=== PATIENT | male | born 1930 | race Caucasian/White ===

== ENCOUNTER 2016-04-04 12:38 | Inpatient (IN) | payer MEDICARE ==
[~2016-04-04] VITALS: Ht 170.2 cm; Wt 85.9 kg
[~2016-04-04 12:38] MED LIST: ASPI325T PO; FENO160T PO; LEVO100T5 PO; METR1GEL TOPICAL; TAMS0.4C4 PO
[2016-04-06] MEDS ORDERED: POVIDONE IODINE 7.5% SCRUB 118 ML BOTTLE TOP SCH (06:00)
[2016-04-06] MEDS ORDERED: INSULIN HUMAN REGULAR 1,000 UNITS/10 ML VIAL SQ PRN (06:00)
[2016-04-06] MEDS ORDERED: VANCOMYCIN 1000 MG/NS 250 ML (for <70 kg) IV SCH ×2 (06:00)
[2016-04-06] MEDS ORDERED: METOPROLOL TARTRATE 25 MG TAB PO PRN (06:00)
[2016-04-06] MEDS ORDERED: ASPI81CH37 PO (06:45)
[2016-04-06] MEDS: LACTATED RINGER'S 1000 ML IV SCH (06:45)
--- NOTE | 2016-04-06 06:48 | HHI.DCPOC ---
Discharge Care Plan Diagnosis: (1) Osteoarthritis of left knee (2) S/P TKR (total knee replacement) Your Health Problems Are: Difficulty with ADL Goals to Promote Your Health * To prevent worsening of your condition and complications * To maintain your health at the optimal level Directions to Meet Your Goals Take your medications as prescribed Follow your dietary instruction Follow activity as directed Keep your appointments as scheduled Take your immunizations and boosters as scheduled If your symptoms worsen call your PCP, if no PCP go to Urgent Care Center or Emergency Room Smoking is Dangerous to Your Health. Avoid second hand smoke Call the 24-hour hour crisis hotline for domestic abuse at Donato Kraus Apr 06, 2016 06:48
--- NOTE | 2016-04-06 06:49 | HHI.FF ---
Face to Face Verification Diagnosis: (1) Osteoarthritis of left knee (2) S/P TKR (total knee replacement) Physical Therapy Gait training, Transfer training, bed to chair Knee: Total knee Left LE Weight Bearing: WB as tolerated Left LE Range of Motion: Active ROM Nursing Nursing: Anai teaching, Dressing changes Dressing Changes: Daily dressing change I have seen patient Braxton Escobar on 04/06/16. My clinical findings support the need for the requested home health care services because: Limited ability to care for self High risk of falls I certify that my clinical findings support that this patient is homebound because: Post-op weakness Unsteady gait/balance Donato Kraus Apr 06, 2016 06:49
[2016-04-06 06:51] VITALS: BP 139/75; PULSE 66; RESP 20; TEMP 98.1; O2SAT 97
[2016-04-06] MEDS ORDERED: CPMMACHINE (06:51)
[2016-04-06] MEDS ORDERED: WALKER WHEELS/F1 MIS (06:51)
[2016-04-06] MEDS ORDERED: COMMODE 3-IN-11 MIS (06:51)
[2016-04-06] MEDS ORDERED: DEXAMETHASONE SOD PHOS 20 MG/5 ML VIAL IV SCH (07:00)
[2016-04-06] MEDS ORDERED: GENTAMICIN SULFATE 80 MG/2 ML VIAL ONE (07:29)
[2016-04-06] MEDS ORDERED: ceFAZolin 2 GM PREMIX 50 ML IV SCH (07:30)
[2016-04-06] MEDS ORDERED: MIDAZOLAM HCL 5 MG/5 ML VIAL ONE (07:31)
[2016-04-06] MEDS ORDERED: FAMOTIDINE 20 MG/2 ML VIAL ONE (07:32)
[2016-04-06] MEDS ORDERED: SODIUM CHLORIDE 0.9% IV SCH (08:30)
[2016-04-06] MEDS ORDERED: ROPIVACAINE PERI-ARTICULAR INJECTION. PERIART SCH ×5 (08:30)
[2016-04-06] MEDS ORDERED: TRANEXAMIC ACID IV SCH (08:30)
[2016-04-06] MEDS ORDERED: SODIUM CHLORID 0.9% 500 ML IV SCH (08:30)
--- NOTE | 2016-04-06 09:54 | PD.OP ---
cc: Darryn Max MD Operative Report Date of Surgery: Apr 06, 2016 Preoperative Diagnosis: Left knee severe osteoarthritis Postoperative Diagnosis: Same Procedure: Left total knee arthroplasty Anesthesia: Adductor canal block and spinal Surgeon: Darryn Max Log Marker(s): BRITTON Stein The surgical procedure was assisted by my Advanced Registered Nurse Practitioner. My MUSIC MANAGER presence was necessary throughout this case for the manipulation and positioning of the surgical extremity. My MUSIC MANAGER was assisting me throughout the duration of this procedure. The skill set of an Advance Registered Nurse Practitioner was medically necessary to complete this procedure. During the surgical case, the salesperson surgical appliances was working at the back table and the Advance Registered Nurse Practitioner was directly assisting me. Operation and Findings: IMPLANTS: DePuy Attune: Patella: size 35. Femur, posterior stabilized size 7. Tibia, rotating platform size 6. Tibial insert, rotating platform, posterior stabilized size 5 mm thickness. ESTIMATED BLOOD LOSS: 200 cc TOURNIQUET TIME: 39 minutes at 250 mmHg pressure. JUSTIFICATION FOR PROCEDURE: The patient has end-stage osteoarthritis to the knee. There is an attached conservative measures pathway form in the chart that describes the nonoperative measures that were undertaken prior to consideration of surgical management. The patient understood the risks and benefits of surgical management. See my office notes for further details PROCEDURE: The patient was brought back to the operative theatre. Adequate anesthesia was obtained. The patient received intravenous vancomycin and Ancef. The lower extremity was prepped and draped in the usual sterile fashion.The leg was exsanguinated, the tourniquet was raised. A standard anterior incision was performed followed by medial parapatellar arthrotomy was performed. End-stage arthritis was identified. Osteotomy of the patella was performed. We drilled holes for the patella. We trialed the patella component. We placed an intramedullary guide into the distal femur. We ultimately resected 13 mm off of the distal femur in 5 degrees of valgus. The remnants of the ACL and PCL were resected. Osteotomy of the proximal tibia was performed, resecting 5 mm off of the medial side. This was done with 3 degrees of posterior slope using an extramedullary guide. The distal end of the guide was placed in the mid aspect of the ankle. The femur was sized, and four chamfer cuts were completed in 3 of external rotation. We then cut the central box in the distal femur to replace the PCL. We resected the remnants of the menisci and removed osteophytes off of the femur and tibia. We then trialed the knee. We punched the tibia for the keel, and then used standard technique to cement in components. Excess cement was removed. We trialed the knee again and the final polyethylene thickness was chosen to provide extension to 0 degrees, and flexion of 140 degrees to gravity. The ligaments were appropriately balanced. Lateral release was not necessary to obtain excellent patellofemoral tracking. The tourniquet was released and adequate hemostasis was obtained. An intra- articular injection of a ropivacaine cocktail was injected. The posterior knee was inspected for excess cement, which was removed. The final polyethylene was put into position after thorough irrigation. We then closed deep fascia with a #2 Stratafix followed by skin with 2-0 Vicryl followed by elicia. Postop plan is to weight-bear as tolerated. DVT prophylaxis will be performed with John, ANDRES whitehead, early mobilization, and Lovenox followed by aspirin. Darryn Max MD Apr 06, 2016 09:54
[2016-04-06] MEDS ORDERED: ASPI325T PO (09:56)
[2016-04-06] MEDS ORDERED: ENOX40P SQ (09:56)
[2016-04-06] MEDS ORDERED: ULTR50TA5 PO (09:56)
[2016-04-06] MEDS ORDERED: NORC5TAB PO (09:56)
[2016-04-06] MEDS ORDERED: MORPHINE SULFATE 4 MG/ML INJ IV PUSH PRN (10:00)
[2016-04-06] MEDS ORDERED: BISACODYL 10 MG SUPP PR PRN (10:00)
[2016-04-06] MEDS ORDERED: Post-op Orders (for Pharmacy) MISC XX ONE (10:00)
[2016-04-06] MEDS ORDERED: diphenhydrAMINE HCL 50 MG/ML VIAL IV PRN (10:00)
[2016-04-06] MEDS ORDERED: SODIUM CHLORIDE 0.9% FLUSH 5 ML FLUSH IVF PRN (10:00)
[2016-04-06] MEDS ORDERED: ZOLPIDEM TARTRATE 5 MG TAB PO PRN (10:00)
[2016-04-06] MEDS ORDERED: NALOXONE HCL 0.4 MG/ML AMP IV PRN (10:00)
[2016-04-06] MEDS ORDERED: ALUMINUM/MAGNESIUM/SIMETH 30 ML CUP PO PRN (10:00)
[2016-04-06] MEDS ORDERED: MAGNESIUM HYDROXIDE SUSP 30 ML CUP PO PRN (10:00)
[2016-04-06] MEDS ORDERED: ONDANSETRON HCL 4 MG/2 ML VIAL IVP PRN (10:00)
[2016-04-06] MEDS ORDERED: ACETAMINOPHEN/HYDROcodone 325 MG/5 MG TAB PO PRN ×4 (10:00→14:00)
[2016-04-06] MEDS ORDERED: DO NOT ADM ANY ANTICOAGULANT DRUGS XX PRN (10:08)
[2016-04-06] MEDS: SODIUM CHLOR 0.9% 1000 ML INJ 1,000 ML IV SCH ×2 (10:30→21:29)
[2016-04-06] MEDS ORDERED: TRANEXAMIC ACID INJ 860 MG in SODIUM CHLORIDE 0.9% INJ 100 ML IV SCH (11:00)
--- NOTE | 2016-04-06 11:38 | PD.CONS ---
History of Present Illness Service [facility] Teaching Service Consult Requested By Dr. Max Reason for Consult Medical management Primary Care Physician Syed Joseph MD Diagnoses: (1) S/P TKR (total knee replacement) (2) Hyperlipidemia (3) Hypothyroid (4) BPH (benign prostatic hyperplasia) History of Present Illness Patient seen in PACU this morning. In summary, this is an 86 year old male with h/o osteoarthritis of multiple joints, HLD, hypothyroidism, and BPH admitted to the hospital after left TKR this morning. Patient now awake and alert. Tolerated the procedure well. No chest pain or SOB. Not in any pain. No nausea or vomiting. He has no complaints at this time. Feels ready to eat. (Temo Simpson MD R3) History of Present Illness 86 yo relatively healthy gentleman POD#0 from left knee total arthroplasty by Dr. Max this morning. Mr. Escobar is doing very well postoperatively and has no complaints at this time. He is awake, oriented, and feels well. He has been out of bed with PT and is currently in the chair next to his bed. He denies flatus or BM yet but feels very hungry. (Syed Joseph MD) Review of Systems Constitutional: DENIES: Fever, Chills Endocrine: DENIES: Polydipsia, Polyuria Eyes: DENIES: Blurred vision, Diplopia Respiratory: DENIES: Cough, Sputum production, Shortness of breath Cardiovascular: DENIES: Chest pain, Palpitations Gastrointestinal: DENIES: Abdominal pain, Black stools, Bloody stools, Constipation, Diarrhea, Nausea, Vomiting, Difficulty Swallowing Genitourinary: DENIES: Hematuria Musculoskeletal: DENIES: Muscle aches, Back pain Integumentary: DENIES: Rash Hematologic/lymphatic: DENIES: Lymphadenopathy Neurologic: DENIES: Abnormal gait, Headache, Localized weakness, Paresthesias Psychiatric: DENIES: Anxiety, Confusion, Mood changes (Temo Simpson MD R3) Past Family Social History Allergies: Coded Allergies: No Known Allergies (Unverified , 04/06/16) Past Medical History Hypothyroid Hyperlipidemia Osteoarthritis of bilateral knees BPH Past Surgical History Cortisone injections in both knees Supartz injection in May 2012 Synvisc injections x4 (2013-) Left total knee replacement 04/06/2016 Right total knee arthroplasty10/28/15 Cataracts bilateral eyes Reported Medications Reported Meds & Active Scripts Active Aspirin 325 Mg Tab 325 Mg PO DAILY Start Aspirin after Lovenox is completed. Lovenox Inj (Enoxaparin Sodium) 40 Mg/0.4 Ml Syr 40 Mg SQ DAILY Start Aspirin after Lovenox is completed. Ultram (Tramadol HCl) 50 Mg Tab 50 Mg PO Q4H PRN [place] (Hydrocodone-Acetaminophen) 5-325 mg Tab 1-2 Tab PO Q4H PRN Metrogel Topical (Metronidazole Topical) 1 % Gel 1 Applic TOPICAL DAILY Reported Aspirin Low Dose (Aspirin) 81 Mg Chew 81 Mg PO DAILY Tamsulosin (Tamsulosin HCl) 0.4 Mg Cap 0.4 Mg PO DAILY Levothyroxine (Levothyroxine Sodium) 100 Mcg Tab 100 Mcg PO DAILY Fenofibrate 160 Mg Tab 160 Mg PO DAILY Family History Father: of ruptured appendix at age 36 Mother: of pulmonary edema at age 56 Siblings: 2 brothers and one sister all from cancer: Esophageal and colon Children: 3 daughters in good health Social History Marrital Status: Living Situation: Lives at home with 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 Pancolonic diverticulosis in the left greater than right. External hemorrhoids of moderate size Pathology: Sessile adenomatous polyp cecum with moderate dysplasia in the surface of the polyp and focal areas approaching high-grade dysplasia. Adenomatous polyp of descending colon. Sessile serrated adenomas and adenomatous polyps of sigmoid colon Zostavax: 08/2015 Prevnar: 2014 Pneumovax: 2016 (Temo Simpson MD R3) Physical Exam Vital Signs Vital Signs Date Time Temp Pulse Resp B/P Pulse Ox O2 Delivery O2 Flow Rate FiO2 04/06/16 10:45 78 15 127/74 92 Nasal Cannula 3 04/06/16 10:30 80 15 131/70 98 Nasal Cannula 4 04/06/16 10:15 83 15 120/70 97 Nasal Cannula 4 04/06/16 10:12 97.6 82 16 128/69 96 Nasal Cannula 4 04/06/16 06:51 98.1 66 20 139/75 97 Physical Exam GENERAL: Well-appearing, elderly male patient. Lying down in bed. In NAD. SKIN: No rashes, ecchymoses or lesions. Cool and dry. Left knee incision c/d/i. Dressing in place. HEAD: Atraumatic. Normocephalic. No temporal or scalp tenderness. EYES: Pupils equal round and reactive. Extraocular motions intact. No scleral icterus. No injection or drainage. ENT: Nose without bleeding, purulent drainage or septal hematoma. Throat without erythema, tonsillar hypertrophy or exudate. Uvula midline. Airway patent. NECK: Trachea midline. No JVD or lymphadenopathy. Supple, nontender, no meningeal signs. CARDIOVASCULAR: Regular rate and rhythm without murmurs, gallops, or rubs. +2 peripheral pulses. RESPIRATORY: Clear to auscultation. Breath sounds equal bilaterally. No wheezes , rales, or rhonchi. GASTROINTESTINAL: Abdomen soft, non-tender, nondistended. No hepato-splenomegaly , or palpable masses. No guarding. MUSCULOSKELETAL: Extremities without clubbing, cyanosis, or edema. No joint tenderness, effusion, or edema noted. SCDs in place. No calf tenderness. NEUROLOGICAL: Awake and alert. Cranial nerves II through XII intact. Motor and sensory grossly within normal limits. Five out of 5 muscle strength in all muscle groups. Normal speech. Laboratory Laboratory Tests Test 04/06/16 04/06/16 04/06/16 04/06/16 06:50 06:55 08:26 09:10 Antibody Identification Non-Specific PANAGGLUTININ Warm Agglutinin Blood Type O POSITIVE O POSITIVE Antibody Screen POSITIVE NEGATIVE Direct Antiglobulin Test WEAKLY ([place]) POSITIVE Crossmatch Leukocyte-Reduced Red Blood Cells Blood Bank Comment (Temo Simpson MD R3) Physical Exam GEN: healthy appearing elderly male in chair next to bed CV: RRR without murmu PULM: CTA bilaterally, no wheezing EXT: Left leg wrapped in LICHA bandage, no obvious bleeding or discharge. Sensation intact into foot. Able to move all toes and ankle. 2+ DP pulse ( Syed Joseph MD) Assessment and Plan Problem List: (1) S/P TKR (total knee replacement) Status: Acute (2) Hypothyroid Status: Chronic (3) Hyperlipidemia Status: Chronic (4) BPH (benign prostatic hyperplasia) Status: Chronic Assessment and Plan 86 year old male admitted after left TKR. 1. S/p TKR -monitor vitals, per protocol -monitor intake and output -NS at 100 MLS/hr. DC in the AM tomorrow if PO improved. -caution with pain medication. Patient very sensitive to narcotics. Will start with [place] 5/325 q4 PRN for pain scale 5-10/10. 1/2 tab for pain <5. -anticoagulation with lovenox x10 days -PT -Trapeze -Consult case management 2. Hypothyroidism -continue home levothyroid 3. HLD -cont home fenofibrate 4. BPH -cont home tamsulosin -plan to DC wong this afternoon 5. FEN/GI -Diet: regular -Fluids: as above -DVT ppx: as above -GI ppx: Zantac -Electrolytes: replace as needed -AM labs: CBC, BMP Zofran for nausea Start daily miralax while on narcotic med. Hold if loose stool. Thank you Dr. Max for this consult. We will continue to follow patient in the hospital along with you. Code Status: Shock, Compressions, Intubation, ACLS Drugs (Temo Simpson MD R3) Discussed Condition With Pt. seen and case discussed with resident physician I have read the above note and agree with the assessment/plan as discussed with me I was involved in all medical decision making for this patient Syed Joseph MD (Syed Joseph MD) Temo Simpson MD R3 Apr 06, 2016 11:38 Syed Joseph MD Apr 06, 2016 19:17
--- NOTE | 2016-04-06 11:42 | RADRPT ---
EXAM DATE/TIME: 04/06/2016 10:59 [place] COMPARISON: No previous studies available for comparison. INDICATIONS : Evaluate knee post total replacement. MEDICAL HISTORY : None. SURGICAL HISTORY : None. ENCOUNTER: Initial ACUITY: 1 day PAIN SCORE: 0/10 LOCATION: Left Knee FINDINGS: 2 views of the left knee demonstrate total left knee arthroplasty with expected postsurgical change. Normal alignment of the prosthesis. CONCLUSION: Status post total left knee arthroplasty with expected postsurgical change.. oRchelle Fernandez MD on April 06, 2016 at 11:36 Board Certified Radiologist. This report was verified electronically.
[2016-04-06] MEDS ORDERED: BUPIVACAINE LIPOSOME PF 1.3% 20 ML VIAL ONE (11:51)
[2016-04-06] MEDS ORDERED: ePHEDrine/NS 50 MG/5 ML SYR IV ONE (12:00)
[2016-04-06] MEDS ORDERED: LACTATED RINGER'S 1000 ML INJ 1,000 ML IV ONE (12:00)
[2016-04-06] MEDS ORDERED: ONDANSETRON HCL 4 MG/2 ML VIAL IV PUSH ONE (12:00)
[2016-04-06] MEDS ORDERED: PROPOFOL 200 MG/20 ML AMP IV ONE (12:00)
[2016-04-06 14:10] VITALS: BP 132/72; PULSE 94; RESP 18; TEMP 96.3; O2SAT 94
[2016-04-06 18:48] VITALS: O2SAT 94
[2016-04-06 20:00] VITALS: BP 96/56; PULSE 94; RESP 17; TEMP 97.8; O2SAT 94
[2016-04-06] MEDS: SODIUM CHLORIDE 0.9% FLUSH 5 ML FLUSH IVF SCH (21:00)
[2016-04-06] MEDS: FAMOTIDINE 20 MG TAB PO SCH (21:28)
[2016-04-07 00:22] VITALS: BP 113/59; PULSE 86; RESP 16; TEMP 96.6; O2SAT 95
[2016-04-07 04:54] LABS: HEMATOCRIT 35.1 % (39.0-51.0); MEAN CELL VOLUME 81.8 FL (80.0-100.0); MEAN CORPUSCULAR HEMOGLOBIN 26.7 PG (27.0-34.0); MEAN CORPUSCULAR HGB CONC 32.7 % (32.0-36.0); PLATELET COUNT 178 TH/MM3 (150-450); RED CELL DISTRIBUTION WIDTH 14.9 % (11.6-17.2); REVIEW FLAG FINAL; WHITE BLOOD COUNT 12.6 TH/MM3 (4.0-11.0)
[2016-04-07 05:24] LABS: BICARBONATE 25.4 MEQ/L (21.0-32.0); POTASSIUM 4.2 MEQ/L (3.5-5.1)
[2016-04-07] MEDS ORDERED: LEVOTHYROXINE SODIUM 100 MCG TAB PO SCH (06:00)
[2016-04-07] MEDS ORDERED: DEXAMETHASONE SOD PHOS 20 MG/5 ML VIAL IV ONE (07:45)
[2016-04-07 08:00] VITALS: BP 123/69; PULSE 68; RESP 18; TEMP 97.1; O2SAT 95
[2016-04-07] MEDS: LACTATED RINGER'S 1000 ML IV SCH (08:30)
[2016-04-07] MEDS: SODIUM CHLORIDE 0.9% FLUSH 5 ML FLUSH IVF SCH (08:32)
[2016-04-07] MEDS: FAMOTIDINE 20 MG TAB PO SCH (08:32)
[2016-04-07] MEDS ORDERED: FENOFIBRATE 145 MG TAB PO SCH (09:00)
[2016-04-07] MEDS ORDERED: TAMSULOSIN HCL 0.4 MG CAP PO SCH (09:00)
[2016-04-07] MEDS ORDERED: METRONIDAZOLE TOPICAL SCH (09:00)
[2016-04-07] MEDS ORDERED: POLYETHYLENE GLYCOL 17 GM PKG PO SCH (09:00)
[2016-04-07] MEDS ORDERED: ENOXAPARIN SODIUM 40 MG/0.4 ML SYRINGE SQ SCH (09:00)
[2016-04-07 09:26] VITALS: O2SAT 98
--- NOTE | 2016-04-07 09:33 | HHI.FPPN ---
Subjective Remarks Patient seen this morning. No acute events overnight. Vitals this morning essentially WNL. He has no complaints at this time. Has not required pain medication. No SOB or CP. Appetite is good. No F/C. Feels ready for DC. Ortho has put in DC orders but has not seen patient yet this AM. (Temo Simpson MD R3 ) Objective Vitals Vital Signs Date Time Temp Pulse Resp B/P Pulse Ox O2 Delivery O2 Flow Rate FiO2 04/07/16 08:00 97.1 68 18 123/69 95 04/07/16 07:30 Room Air 04/07/16 00:22 96.6 86 16 113/59 95 04/06/16 20:00 97.8 94 17 96/56 94 04/06/16 18:48 94 21 04/06/16 14:10 96.3 94 18 132/72 94 04/06/16 13:50 97.6 84 16 140/82 95 Room Air 04/06/16 13:00 78 16 139/80 94 Room Air 04/06/16 12:00 77 16 138/81 98 Nasal Cannula 2 04/06/16 11:45 78 16 137/79 97 Nasal Cannula 2 04/06/16 11:30 97.8 80 16 138/84 98 Nasal Cannula 3 04/06/16 11:15 80 16 137/81 95 Nasal Cannula 3 04/06/16 11:00 79 15 131/82 94 Nasal Cannula 3 04/06/16 10:45 78 15 127/74 92 Nasal Cannula 3 04/06/16 10:30 80 15 131/70 98 Nasal Cannula 4 04/06/16 10:15 83 15 120/70 97 Nasal Cannula 4 04/06/16 10:12 97.6 82 16 128/69 96 Nasal Cannula 4 I/O 04/06/16 04/06/16 04/06/16 04/07/16 04/07/16 04/07/16 07:00 15:00 23:00 07:00 15:00 23:00 Intake Total 1450 ml 1426 ml 240 ml Output Total 900 ml 1000 ml Balance 550 ml 426 ml 240 ml Intake Oral 480 ml 240 ml IV Total 250 ml 946 ml Other 1200 ml Output Urine Total 850 ml 1000 ml Estimated Blood Loss 50 ml # Bowel Movements 0 (Temo Simpson MD R3) Result Diagram: 04/07/1641704/07/16417 Objective Remarks GENERAL: Well-appearing, elderly male patient. Sitting up in chair. In NAD. SKIN: No rashes, ecchymoses or lesions. Cool and dry. Left knee incision c/d/i. Dressing in place. Left knee immobilizer in place, as well. NECK: Trachea midline. No JVD or lymphadenopathy. Supple, nontender, no meningeal signs. CARDIOVASCULAR: Regular rate and rhythm without murmurs, gallops, or rubs. +2 peripheral pulses. RESPIRATORY: Clear to auscultation. Breath sounds equal bilaterally. No wheezes , rales, or rhonchi. GASTROINTESTINAL: Abdomen soft, non-tender, nondistended. No hepato-splenomegaly , or palpable masses. No guarding. MUSCULOSKELETAL: Extremities without clubbing, cyanosis, or edema. No joint tenderness, effusion, or edema noted. No calf tenderness. NEUROLOGICAL: Awake and alert. Motor and sensory grossly within normal limits. Five out of 5 muscle strength in all muscle groups. Normal speech. (Temo Simpson MD R3) A/P Assessment and Plan 86 year old male admitted after left TKR. 1. S/p TKR -POD #1 -DC IVF. Encourage PO intake. -caution with pain medication. Patient very sensitive to narcotics. [place] 5/325 q4 PRN for pain scale 5-10/10. 1/2 tab for pain <5. -anticoagulation with lovenox x10 days -PT -Trapeze -Consult case management 2. Hypothyroidism -continue home levothyroid 3. HLD -cont home fenofibrate 4. BPH -good UOP after wong removal yesterday -cont home tamsulosin 5. FEN/GI -Diet: regular -Fluids: as above -DVT ppx: as above -GI ppx: Zantac -Electrolytes: replace as needed Zofran for nausea Daily miralax while on narcotic med. Hold if loose stool. Discharge Planning DC home with HH PT today. Discussed with Dr. Joseph (Temo Simpson MD R3) Attending Attestation Pt. examined and case discussed with resident physician I have read the above note and agree with the assessment/plan as discussed with me I was involved in all medical decision making for this patient Syed Joseph MD (Syed Joseph MD) Problem List: (1) S/P TKR (total knee replacement) Status: Acute (2) Hypothyroid Status: Chronic (3) Hyperlipidemia Status: Chronic (4) BPH (benign prostatic hyperplasia) Status: Chronic (Temo Simpson MD R3) Temo Simpson MD R3 Apr 07, 2016 09:33 Syed Joseph MD Apr 07, 2016 14:45
[2016-04-07 12:00] VITALS: BP 107/60; PULSE 74; RESP 18; TEMP 98; O2SAT 93
--- NOTE | 2016-04-07 12:09 | PD.ORT.PN ---
Subjective Post Op Day #: 1 Subjective Remarks Patient is OOB in chair with no pain to the left knee. is at bedside. Patient is voiding and ambulatory. Objective Vitals Vital Signs Date Time Temp Pulse Resp B/P Pulse Ox O2 Delivery O2 Flow Rate FiO2 04/07/16 09:26 98 21 04/07/16 08:00 97.1 68 18 123/69 95 04/07/16 07:30 Room Air 04/07/16 00:22 96.6 86 16 113/59 95 04/06/16 20:00 97.8 94 17 96/56 94 04/06/16 18:48 94 21 04/06/16 14:10 96.3 94 18 132/72 94 04/06/16 13:50 97.6 84 16 140/82 95 Room Air 04/06/16 13:00 78 16 139/80 94 Room Air I/O 04/06/16 04/06/16 04/06/16 04/07/16 04/07/16 04/07/16 07:00 15:00 23:00 07:00 15:00 23:00 Intake Total 1450 ml 1426 ml 240 ml Output Total 900 ml 1000 ml Balance 550 ml 426 ml 240 ml Intake Oral 480 ml 240 ml IV Total 250 ml 946 ml Other 1200 ml Output Urine Total 850 ml 1000 ml Estimated Blood Loss 50 ml # Bowel Movements 0 Result Diagram: 04/07/16 0418 04/07/16 0418 Procedures Left TKA Objective Remarks The patient's dressing was changed today with scant serosanguineous drainage. Incision is well approximated with surgical clips intact. No redness or s/s of infection. EHL/TA/G intact. 2+ pedal pulse. + SILT. No swelling. Calf is soft and nontender. Assessment & Plan Ortho Post Op Day #: 1 Problem List: Assessment and Plan POD #1: Left TKA 1. WBAT LLE 2. Lovenox for DVT prophylaxis 3. Ice to the left knee PRN 4. Stable for discharge home with home health today. Donaot Kraus Apr 07, 2016 12:09
[2016-04-07] MEDS ORDERED: DOCUSATE SODIUM 100 MG CAP PO SCH (21:00)
[2016-04-07] MEDS ORDERED: MULTIVITAMINS/MINERALS THERAPEUTIC TAB PO SCH (21:00)
--- NOTE | 2016-04-10 18:43 | HHI.DS ---
Discharge Summary Admission Date Apr 06, 2016 at 05:22 Discharge Date: Apr 07, 2016 Admitting Diagnosis Primary localized OA, lower leg Status post left TKA Diagnosis: (1) Osteoarthritis of left knee Diagnosis: Principal (2) S/P TKR (total knee replacement) Diagnosis: Principal Procedures Left TKA Brief History This is a 86 year old male patient with severe OA of the left knee. CBC/BMP: 04/07/16 0418 04/07/16 0418 PE at Discharge The patient's dressing was changed today with scant serosanguineous drainage. Incision is well approximated with surgical clips intact. No redness or s/s of infection. EHL/TA/G intact. 2+ pedal pulse. + SILT. No swelling. Calf is soft and nontender. Hospital Course The patient was admitted to the hospital with severe OA of the left knee to have a left TKA. The patient's surgery went well with no complication. The patient had a normal hospital course. The patient is WBAT. The patient was discharged home with home health and will f/u with Dr. Max in 1-2 weeks. Pt Condition on Discharge: Stable Discharge Disposition: Disch w/ Home Health Serv Discharge Instructions Diet Instructions: As Tolerated, No Restrictions Activities You Can Perform: Weight Bearing as Willian Activities to Avoid: Strenuous Activity Follow up Referrals: Orthopedics with Darryn Max MD New Medications: Aspirin (Aspirin) 325 Mg Tab 325 MG PO DAILY Start Aspirin after Lovenox is completed. Prevent Blood Clot # 30 Ref 0 TAB Commode 3-in-1 (Commode 3-in-1) 1 Mis Mis 1 EA .ROUTE DIRECTED #1 Ref 0 EA CPM-Continuous Passive Motion Machine (CPM-Continuous Passive Motion Machine) 1 Ea Device 1 EA .ROUTE DIRECTED #1 Ref 0 EA Enoxaparin Inj (Lovenox Inj) 40 Mg/0.4 Ml Syr 40 MG SQ DAILY Start Aspirin after Lovenox is completed. Blood Clot Prevention # 10 Ref 0 SYRINGE Hydrocodone-Acetaminophen ([place]) 5-325 mg Tab 1-2 TAB PO Q4H PRN PAIN #60 Ref 0 TAB Tramadol (Ultram) 50 Mg Tab 50 MG PO Q4H PRN PAIN #60 Ref 0 TAB Walker with Front Wheels (Walker with Front Wheels) 1 Mis Mis 1 EA .ROUTE DIRECTED #1 Ref 0 EA Continued Medications: Fenofibrate (Fenofibrate) 160 Mg Tab 160 MG PO DAILY #30 Ref 0 TAB Levothyroxine (Levothyroxine) 100 Mcg Tab 100 MCG PO DAILY Thyroid #30 Ref 0 TAB Metronidazole Topical (Metrogel Topical) 1 % Gel 1 APPLIC TOPICAL DAILY Infection #1 Ref 0 TUBE Tamsulosin (Tamsulosin) 0.4 Mg Cap 0.4 MG PO DAILY Manage Prostate Problems #30 Ref 0 CAP Discontinued Medications: Aspirin (Aspirin Low Dose) 81 Mg Chew 81 MG PO DAILY Ref 0 TAB Donato Kraus Apr 10, 2016 18:43
[2016-07-15] MEDS ORDERED: FENO160T PO (11:38)
== END 2016-04-07 15:15 | disposition home health service (06) | DRG 470 ==
LOC: HSDI 04-06 05:22 → N06B 04-06 14:05
PROVIDERS: ADMIT Orthopaedic Surgery; ATTEND Orthopaedic Surgery
PROC: 0QRF0JZ Replacement of Left Patella with Synthetic Substitute, Open Approach (ICD-10-PCS; 2016-04-06)
PROC: 0SRD0J9 Replacement of Left Knee Joint with Synthetic Substitute, Cemented, Open Approach (ICD-10-PCS; principal; 2016-04-06 07:58)
DX: M17.12 Unilateral primary osteoarthritis, left knee (principal); E03.9 Hypothyroidism, unspecified; K21.9 Gastro-esophageal reflux disease without esophagitis; E78.5 Hyperlipidemia, unspecified; N40.0 Benign prostatic hyperplasia without lower urinary tract symptoms; Z96.651 Presence of right artificial knee joint
CPT/HCPCS: 73560; 80048; 85027; 86077; 86850; 86870; 86880; 86900; 86901; 86920; 86921; 86922; 94150; C1776; C9290; J0171; J0690; J0735; J1100; J1580; J1650; J1885; J2250; J2405; J2795; J3370; J7030; J7050; J7120; L1830

== ENCOUNTER 2017-09-03 22:11 | Emergency (ER) | payer MEDICARE ==
[~2017-09-03] VITALS: Ht 167.6 cm; Wt 85.0 kg
[~2017-09-03 22:11] MED LIST changes: +ASPI-183 PO; -ASPI325T PO; +PROS5TAB PO
[2017-09-03 22:14] VITALS: BP 118/69; PULSE 92; RESP 18; TEMP 98.4; O2SAT 96
[2017-09-03] MEDS ORDERED: SODIUM CHLORIDE 0.9% FLUSH 10 ML FLUSH IV FLUSH PRN (22:30)
--- NOTE | 2017-09-03 22:44 | PD ---
HPI Chief Complaint: Abdominal Pain Time Seen by Provider: 22:28 Travel History International Travel<30 days: No Contact w/Intl Traveler<30days: No Traveled to known affect area: No History of Present Illness HPI Patient is an 87 year old male presents to the ER for evaluation of RUQ abdominal pain. Patient states pain is mild, not associated with n/v/d/c, intermittent over the past week. Patient states that he's never had this before. Thought it was just gas pains. No previous abdominal surgery, no cp, no sob, no fever, no blood in the stool, no melena. PFSH Past Medical History Cancer: No Cardiovascular Problems: No Diabetes: No Endocrine: No Genitourinary: Yes (ENLARGED PROSTATE) Hepatitis: No Hiatal Hernia: No Immune Disorder: No Neurologic: No Psychiatric: No Reproductive: No Respiratory: No Thyroid Disease: Yes Influenza Vaccination: Yes Past Surgical History Abdominal Surgery: No AICD: No Cardiac Surgery: No Ear Surgery: No Endocrine Surgery: No Eye Surgery: Yes (BILAT. CATARACT SX) Genitourinary Surgery: No Joint Replacement: Yes (Bilateral knee) Oral Surgery: No Pacemaker: No Thoracic Surgery: No Social History Alcohol Use: No Tobacco Use: No Substance Use: No Allergies-Medications (Allergen,Severity, Reaction): Coded Allergies: No Known Allergies (Unverified Allergy, Unknown, 09/05/17) Reported Meds & Prescriptions Reported Meds & Active Scripts Active Proscar (Finasteride) 5 Mg Tab 5 Mg PO DAILY Do not crush. Tamsulosin (Tamsulosin HCl) 0.4 Mg Cap 0.4 Mg PO DAILY Fenofibrate 160 Mg Tab 160 Mg PO DAILY Levothyroxine (Levothyroxine Sodium) 100 Mcg Tab 100 Mcg PO DAILY Reported Aspirin 81 Mg Chew 81 Mg CHEW DAILY Review of Systems Except as stated in HPI: all other systems reviewed are Neg Physical Exam Narrative GENERAL: WD/WN elderly male in NAD. SKIN: Warm and dry. HEAD: Atraumatic. Normocephalic. EYES: Pupils equal and round. No scleral icterus. No injection or drainage. ENT: No nasal bleeding or discharge. Mucous membranes pink and moist. NECK: Trachea midline. No JVD. CARDIOVASCULAR: Regular rate and rhythm. RESPIRATORY: No accessory muscle use. Clear to auscultation. Breath sounds equal bilaterally. GASTROINTESTINAL: Abdomen soft, non-tender, nondistended. Hepatic and splenic margins not palpable. No rebound, no percussive tenderness. Hammond, psoas, obturator and rovsing's sign all negative. No cva tenderness. MUSCULOSKELETAL: Extremities without clubbing, cyanosis, or edema. No obvious deformities. NEUROLOGICAL: Awake and alert. No obvious cranial nerve deficits. Motor grossly within normal limits. Five out of 5 muscle strength in the arms and legs. Normal speech. PSYCHIATRIC: Appropriate mood and affect; insight and judgment normal. Data Data Last Documented VS Vital Signs Date Time Temp Pulse Resp B/P (MAP) Pulse Ox O2 Delivery O2 Flow Rate FiO2 09/04/17 00:24 88 18 133/63 (86) 94 09/03/17 23:15 Room Air 09/03/17 22:14 98.4 Orders Orders Complete Blood Count With Diff (09/03/17 22:28) Comprehensive Metabolic Panel (09/03/17 22:28) Lipase (09/03/17 22:28) Prothrombin Time / Inr (Pt) (09/03/17 22:28) Act Partial Throm Time (Ptt) (09/03/17 22:28) Urinalysis - C+S If Indicated (09/03/17 22:28) Iv Access Insert/Monitor (09/03/17 22:28) Ecg Monitoring (09/03/17 22:28) Oximetry (09/03/17 22:28) Sodium Chloride 0.9% Flush (Ns Flush) (09/03/17 22:30) Ct Abd/Pel W Iv Contrast(Rout) (09/03/17 ) Iohexol 350 Inj (Omnipaque 350 Inj) (09/03/17 23:25) Ed Discharge Order (09/03/17 23:40) Labs Laboratory Tests Test 09/03/17 22:37 White Blood Count 10.4 TH/MM3 Red Blood Count 4.65 MIL/MM3 Hemoglobin 13.5 GM/DL Hematocrit 40.6 % Mean Corpuscular Volume 87.2 FL Mean Corpuscular Hemoglobin 28.9 PG Mean Corpuscular Hemoglobin Concent 33.2 % Red Cell Distribution Width 12.7 % Platelet Count 279 TH/MM3 Mean Platelet Volume 10.0 FL Neutrophils (%) (Auto) 82.4 % Lymphocytes (%) (Auto) 8.6 % Monocytes (%) (Auto) 7.4 % Eosinophils (%) (Auto) 0.7 % Basophils (%) (Auto) 0.9 % Neutrophils # (Auto) 8.5 TH/MM3 Lymphocytes # (Auto) 0.9 TH/MM3 Monocytes # (Auto) 0.8 TH/MM3 Eosinophils # (Auto) 0.1 TH/MM3 Basophils # (Auto) 0.1 TH/MM3 CBC Comment DIFF FINAL Differential Comment Prothrombin Time 11.2 SEC Prothromb Time International Ratio 1.1 RATIO Activated Partial Thromboplast Time 31.5 SEC Urine Color YELLOW Urine Turbidity CLEAR Urine pH 5.5 Urine Specific [place] GREATER/EQUAL 1.030 Urine Protein 30 mg/dL Urine Glucose (UA) NEG mg/dL Urine Ketones NEG mg/dL Urine Occult Blood NEG Urine Nitrite NEG Urine Bilirubin NEG Urine Urobilinogen 0.2 MG/DL Urine Leukocyte Esterase NEG Urine RBC 0-3 /hpf Urine Squamous Epithelial Cells 0-5 /hpf Microscopic Urinalysis Comment CULT NOT INDICATED Blood Urea Nitrogen 22 MG/DL Creatinine 1.50 MG/DL Random Glucose 140 MG/DL Total Protein 8.1 GM/DL Albumin 3.1 GM/DL Calcium Level 9.7 MG/DL Alkaline Phosphatase 67 U/L Aspartate Amino Transf (AST/SGOT) 32 U/L Alanine Aminotransferase (ALT/SGPT) 20 U/L Total Bilirubin 0.6 MG/DL Sodium Level 136 MEQ/L Potassium Level 3.9 MEQ/L Chloride Level 101 MEQ/L Carbon Dioxide Level 26.4 MEQ/L Anion Gap 9 MEQ/L Estimat Glomerular Filtration Rate 44 ML/MIN Lipase 165 U/L [facility] Medical Decision Making Medical Screen Exam Complete: Yes Emergency Medical Condition: Yes Differential Diagnosis Cholecystitis unlikely, pancreatitis unlikely, PUD, Gastritis, Gastroenteritis, Diverticulitis. Narrative Course Last 24 hours Impressions Abdomen/Pelvis CT 09/03/17 0000 Signed Impressions: CONCLUSION: 1. Negative CT Abdomen and Pelvis with contrast. Patient labs are reassuring other than a neutrophil predominance on differential. Cr. At baseline. He was offered pain medication in ER and declined. At this point with benign abdomen he is stable for discharge. Diagnosis Primary Impression: RUQ abdominal pain Additional Instructions: Follow up with your regular physician tomorrow. Disposition: 01 DISCHARGE HOME Condition: Stable Owen Cortes MD Sep 03, 2017 22:44
[2017-09-03 22:49] LABS: BILIRUBIN, URINE NEG (NEG); BLOOD, URINE NEG (NEG); GLUCOSE,URINE NEG (NEG); KETONE, URINE NEG (NEG); NITRITE,URINE NEG (NEG); PH, URINE 5.5 (5.0-8.5); URINE COLOR YELLOW (YELLW/STRAW); URINE LEUKOCYTE ESTERASE NEG (NEG)
[2017-09-03 22:51] LABS: AUTOMATED NEUTROPHIL # 8.5 TH/MM3 (1.8-7.7); BASOPHIL # 0.1 TH/MM3 (0-0.2); BASOPHIL % 0.9 % (0.0-2.0); EOSINOPHIL # 0.1 TH/MM3 (0-0.4); EOSINOPHIL % 0.7 % (0.0-4.0); HEMATOCRIT 40.6 % (39.0-51.0); HEMOGLOBIN 13.5 GM/DL (13.0-17.0); LYMPH % 8.6 % (9.0-44.0); LYMPHOCYTE # 0.9 TH/MM3 (1.0-4.8); MEAN CELL VOLUME 87.2 FL (80.0-100.0); MEAN CORPUSCULAR HEMOGLOBIN 28.9 PG (27.0-34.0); MEAN CORPUSCULAR HGB CONC 33.2 % (32.0-36.0); MONO % 7.4 % (0.0-8.0); MONOCYTE # 0.8 TH/MM3 (0-0.9); NEUT % 82.4 % (16.0-70.0); PLATELET COUNT 279 TH/MM3 (150-450); RED BLOOD COUNT 4.65 MIL/MM3 (4.50-5.90); RED CELL DISTRIBUTION WIDTH 12.7 % (11.6-17.2); WHITE BLOOD COUNT 10.4 TH/MM3 (4.0-11.0)
[2017-09-03 22:57] LABS: RBC, URINE 0-3 /hpf (0-3); SQUAMOUS EPITHELIAL CELL URINE 0-5 /hpf (0-5)
[2017-09-03 23:01] LABS: CHLORIDE 101 MEQ/L (98-107); SODIUM (NA) 136 MEQ/L (136-145)
[2017-09-03 23:05] LABS: ALBUMIN 3.1 GM/DL (3.4-5.0); BICARBONATE 26.4 MEQ/L (21.0-32.0); BLOOD UREA NITROGEN 22 MG/DL (7-18); CALCIUM 9.7 MG/DL (8.5-10.1); GLUCOSE,RANDOM 140 MG/DL (74-106)
[2017-09-03 23:08] LABS: ALT (GPT) 20 U/L (12-78); AST (GOT) 32 U/L (15-37); GLOMERULAR FILTRATION RATE 44 ML/MIN (>89)
[2017-09-03 23:09] LABS: INTERNATIONAL NORMALIZED RATIO 1.1 RATIO; PROTHROMBIN TIME - PATIENT 11.2 SEC (9.8-11.6)
[2017-09-03 23:10] LABS: TOTAL BILIRUBIN ADULT 0.6 MG/DL (0.2-1.0); TOTAL PROTEIN 8.1 GM/DL (6.4-8.2)
[2017-09-03 23:11] LABS: ALKALINE PHOSPHATASE 67 U/L (45-117)
[2017-09-03 23:15] VITALS: BP 162/80; PULSE 85; RESP 18; O2SAT 94
[2017-09-03] MEDS ORDERED: IOHEXOL 350 MG/ML 10 ML VIAL (for RAD DIAG) IVCONTRAST ONE (23:25)
--- NOTE | 2017-09-03 23:37 | RADRPT ---
EXAM DATE: 09/03/2017 11:27 PM EDT AGE/SEX: 87 years / Male INDICATIONS: Upper abdominal pain. CLINICAL DATA: This is the patient's initial encounter. Patient reports that signs and symptoms have been present for 1 day and indicates a pain score of 8/10. MEDICAL/SURGICAL HISTORY: None. None. ORAL CONTRAST: No oral contrast ingested. RADIATION DOSE: 18.35 CTDI (mGy) COMPARISON: No prior exams available for comparison. TECHNIQUE: Multiple contiguous axial images were obtained through the abdomen and pelvis following b olus infusion of 90 ml Omnipaque 350 (iohexol) nonionic water-soluble contrast as a single exam dos e. No oral contrast ingested. Using automated exposure control and adjustment of the mA and/or kV ac cording to patient size, the radiation dose was kept as low as reasonably achievable to obtain optima l diagnostic quality images. FINDINGS: Lower Lungs: The visualized lower lungs are clear. Liver: The liver has a homogeneous density without space-occupying lesion. There is no dilation of th e biliary tree. Spleen: Homogeneous density without enlargement. Pancreas: Unremarkable without mass or calcification. Kidneys: Normal in size and shape. No evidence of mass or hydronephrosis. Adrenal Glands: Unremarkable. Aorta: The aorta and proximal iliac vessels are grossly unremarkable without aneurysmal dilation. Bowel/Mesentery: The bowel loops are grossly unremarkable. The cecum and sigmoid colon have a normal configuration. Abdominal Wall: Intact. Retroperitoneum: No evidence of adenopathy in the retrocrural, para-aortic, or deep pelvic regions. Bladder: Contours are smooth. Reproductive Organs: No abnormal masses or calcifications seen. Inguinal: The inguinal region is unremarkable without evidence of adenopathy. Bony Structures: Unremarkable. CONCLUSION: 1. Negative CT Abdomen and Pelvis with contrast. Electronically signed by: Eliceo Alonso MD 09/03/2017 11:36 PM EDT
[2017-09-04 00:24] VITALS: BP 133/63
[2017-09-04] MEDS ORDERED: ASPI-516 CHEW (00:28)
[2017-09-08] MEDS ORDERED: AMOX875T2 PO (17:34)
[2017-09-08] MEDS ORDERED: HYDR-3580 PO (17:34)
[2017-09-09] MEDS ORDERED: LEVA750T9 PO ×2 (19:17→20:22)
[2017-09-09] MEDS ORDERED: METR-1 PO ×2 (19:17→20:22)
[2017-09-09] MEDS ORDERED: ZOFR8TAB4 SL ×2 (19:50→20:22)
== END 2017-09-04 00:31 | disposition home or self-care (01) ==
LOC: PHED 22:11
DX: R10.11 Right upper quadrant pain (principal)
CPT/HCPCS: 74177; 80053; 81001; 83690; 85025; 85610; 85730; 99285; Q9967

== ENCOUNTER 2017-09-09 22:30 | Inpatient (IN) | payer MEDICARE ==
[~2017-09-09] VITALS: Ht 167.6 cm; Wt 85.0 kg
[~2017-09-09 22:30] MED LIST changes: +AMOX875T2 PO; -ASPI-183 PO; +ASPI-516 CHEW; +HYDR-3580 PO; +LEVA750T9 PO; +METR-1 PO; -METR1GEL TOPICAL; +ZOFR8TAB4 SL
[2017-09-09 22:35] VITALS: BP 134/68; PULSE 101; RESP 20; TEMP 98.7; O2SAT 93
[2017-09-10] VITALS (7 sets, daily range): BP systolic 119–127; BP diastolic 60–78; PULSE 68–83; RESP 17–18; TEMP 98–98.8; O2SAT 92–95
[2017-09-10 00:37] LABS: AUTOMATED NEUTROPHIL # 10.1 TH/MM3 (1.8-7.7); BASOPHIL # 0.1 TH/MM3 (0-0.2); BASOPHIL % 0.8 % (0.0-2.0); EOSINOPHIL # 0.2 TH/MM3 (0-0.4); EOSINOPHIL % 1.9 % (0.0-4.0); HEMOGLOBIN 11.1 GM/DL (13.0-17.0); LYMPHOCYTE # 0.3 TH/MM3 (1.0-4.8); MEAN CELL VOLUME 83.1 FL (80.0-100.0); MEAN CORPUSCULAR HEMOGLOBIN 27.9 PG (27.0-34.0); MEAN CORPUSCULAR HGB CONC 33.6 % (32.0-36.0); MEAN PLATELET VOLUME 10.3 FL (7.0-11.0); MONO % 5.9 % (0.0-8.0); MONOCYTE # 0.7 TH/MM3 (0-0.9); NEUT % 88.4 % (16.0-70.0); PLATELET COUNT 402 TH/MM3 (150-450); RED BLOOD COUNT 3.98 MIL/MM3 (4.50-5.90); RED CELL DISTRIBUTION WIDTH 14.7 % (11.6-17.2); WHITE BLOOD COUNT 11.4 TH/MM3 (4.0-11.0)
[2017-09-10 00:41] LABS: BILIRUBIN, URINE NEG (NEG); BLOOD, URINE NEG (NEG); GLUCOSE,URINE NEG (NEG); KETONE, URINE TRACE mg/dL (NEG); MUCUS URINE FEW /lpf (OCC); NITRITE,URINE NEG (NEG); URINE COLOR YELLOW (YELLW/STRAW); URINE LEUKOCYTE ESTERASE NEG (NEG)
--- NOTE | 2017-09-10 00:57 | PD ---
HPI Chief Complaint: Complaint Time Seen by Provider: 22:48 Travel History International Travel<30 days: No Contact w/Intl Traveler<30days: No Traveled to known affect area: No History of Present Illness HPI This is an 87-year-old male who had a cholecystectomy on September 08 in the setting of sepsis who presents to the emergency department having been discharged from the hot unable to urinate. Patient reports severe abdominal discomfort that has been worsening throughout the afternoon, constant, nonradiating. Patient reportedly has been feeling nauseous ever since he was discharged from the hospital and he threw up on the way home. Family administered some Zofran and he feels a little bit better. PFSH Past Medical History Cancer: No Cardiovascular Problems: No Diabetes: No Endocrine: No Gastrointestinal Disorders: No Genitourinary: No Hepatitis: No Hiatal Hernia: No Hypertension: No Immune Disorder: No Medical other: No Musculoskeletal: No Neurologic: No Psychiatric: No Reproductive: No Respiratory: No Thyroid Disease: Yes (hypothyroid) Past Surgical History Abdominal Surgery: No AICD: No Cardiac Surgery: No Ear Surgery: No Endocrine Surgery: No Eye Surgery: Yes (BILAT. CATARACT SX) Genitourinary Surgery: No Joint Replacement: Yes (Bilateral knee) Neurologic Surgery: No Oral Surgery: No Pacemaker: No Thoracic Surgery: No Other Surgery: Yes Social History Alcohol Use: No Tobacco Use: No Substance Use: No Allergies-Medications (Allergen,Severity, Reaction): Coded Allergies: No Known Allergies (Unverified Allergy, Unknown, 09/09/17) Reported Meds & Prescriptions Reported Meds & Active Scripts Active Zofran Odt (Ondansetron Odt) 8 Mg Tab 8 Mg SL Q8H PRN x Flagyl (Metronidazole) 500 Mg Tab 500 Mg PO Q8HR ALT NEB 7 Days x Levaquin (Levofloxacin) 750 Mg Tablet 750 Mg PO DAILY 14 Days x Hydrocodone-Acetamin 7.5-325 (Hydrocodone/Acetaminophen) 7.5 Mg-325 Mg Tablet 1 Tab PO Q4H PRN Proscar (Finasteride) 5 Mg Tab 5 Mg PO DAILY Do not crush. Tamsulosin (Tamsulosin HCl) 0.4 Mg Cap 0.4 Mg PO DAILY Fenofibrate 160 Mg Tab 160 Mg PO DAILY Levothyroxine (Levothyroxine Sodium) 100 Mcg Tab 100 Mcg PO DAILY Reported Aspirin 81 Mg Chew 81 Mg CHEW DAILY Review of Systems Except as stated in HPI: all other systems reviewed are Neg Physical Exam Narrative GENERAL:Well appearing, no acute distress SKIN: Dry with skin tenting. Surgical incision sites are well healing with no surrounding erythema. HEAD: Atraumatic. Normocephalic. EYES: Pupils equal and round. No injection or drainage. ENT: Moist mucous membranes NECK: Trachea midline. CARDIOVASCULAR: Regular rate and rhythm. No murmur appreciated. RESPIRATORY: Clear to auscultation. Breath sounds equal bilaterally. GASTROINTESTINAL: Abdomen soft, tender to palpation in the suprapubic region with a distended bladder. MUSCULOSKELETAL: No obvious deformities. NEUROLOGICAL: Awake and alert. No obvious cranial nerve deficits. Moving all extremities. PSYCHIATRIC: Appropriate mood and affect; insight and judgment normal. Data Data Last Documented VS Vital Signs Date Time Temp Pulse Resp B/P (MAP) Pulse Ox O2 Delivery O2 Flow Rate FiO2 09/09/17 22:35 98.7 101 20 134/68 (90) 93 Orders Orders Complete Blood Count With Diff (09/09/17 23:00) Comprehensive Metabolic Panel (09/09/17 23:00) ^ Insert Iv (09/09/17 23:00) Urinalysis - C+S If Indicated (09/09/17 23:00) Urinary Catheter Insert/Apply (09/09/17 23:00) Admit Order (Ed Use Only) (09/10/17 01:02) Labs Laboratory Tests Test 09/09/17 20:03 09/09/17 23:56 Urine Color YELLOW Urine Turbidity HAZY Urine pH 5.0 Urine Specific [place] 1.023 Urine Protein 30 mg/dL Urine Glucose (UA) NEG mg/dL Urine Ketones TRACE mg/dL Urine Occult Blood NEG Urine Nitrite NEG Urine Bilirubin NEG Urine Urobilinogen LESS THAN 2 mg/dL Urine Leukocyte Esterase NEG Urine RBC 1 /hpf Urine WBC 2 /hpf Urine Mucus FEW /lpf Microscopic Urinalysis Comment CATH-CULT NOT IND White Blood Count 11.4 TH/MM3 Red Blood Count 3.98 MIL/MM3 Hemoglobin 11.1 GM/DL Hematocrit 33.0 % Mean Corpuscular Volume 83.1 FL Mean Corpuscular Hemoglobin 27.9 PG Mean Corpuscular Hemoglobin Concent 33.6 % Red Cell Distribution Width 14.7 % Platelet Count 402 TH/MM3 Mean Platelet Volume 10.3 FL Neutrophils (%) (Auto) 88.4 % Lymphocytes (%) (Auto) 3.0 % Monocytes (%) (Auto) 5.9 % Eosinophils (%) (Auto) 1.9 % Basophils (%) (Auto) 0.8 % Neutrophils # (Auto) 10.1 TH/MM3 Lymphocytes # (Auto) 0.3 TH/MM3 Monocytes # (Auto) 0.7 TH/MM3 Eosinophils # (Auto) 0.2 TH/MM3 Basophils # (Auto) 0.1 TH/MM3 CBC Comment DIFF FINAL Differential Comment Blood Urea Nitrogen 17 MG/DL Creatinine 1.14 MG/DL Random Glucose 123 MG/DL Total Protein 6.7 GM/DL Albumin 1.9 GM/DL Calcium Level 8.0 MG/DL Alkaline Phosphatase 125 U/L Aspartate Amino Transf (AST/SGOT) 120 U/L Alanine Aminotransferase (ALT/SGPT) 32 U/L Total Bilirubin 0.8 MG/DL Sodium Level 139 MEQ/L Potassium Level 4.5 MEQ/L Chloride Level 109 MEQ/L Carbon Dioxide Level 22.1 MEQ/L Anion Gap 8 MEQ/L Estimat Glomerular Filtration Rate 61 ML/MIN MDM Medical Decision Making Medical Screen Exam Complete: Yes Emergency Medical Condition: Yes Medical Record Reviewed: Yes (Patient was admitted to the hospital and discharged today in the setting of sepsis having had a cholecystectomy 2 days ago.) Interpretation(s) Mild leukocytosis Mild anemia 88% neutrophils Urinalysis is negative for infection Differential Diagnosis Urinary retention, electrolyte abnormality, dehydration Narrative Course This is an 87-year-old male who presents to the emergency department with acute urinary retention. He was discharged earlier today from the hospital following a cholecystectomy. His family reports that he has been quite nauseous ever since discharge. Labs are reassuring. A Gipson catheter was placed and the patient diuresed 1.2 L of urine. I think he requires continued observation for anti-emetics and IV hydration as clinically he appears dehydrated. Diagnosis Primary Impression: Acute urinary retention Admitting Information Admitting Physician Requests: Observation Melvina Ray MD Sep 10, 2017 00:57
--- NOTE | 2017-09-10 01:12 | HHI.HP ---
HPI Service Family Medicine Primary Care Physician Syed Joseph MD Admission Diagnosis acute urinary retention Diagnoses: International Travel<30 Days: No Contact w/Intl Traveler<30days: No Known Affected Area: No History of Present Illness Patient is a 87-year-old male with recent diagnosis of E. coli bacteremia and gangrenous cholecystitis (s/p laparoscopic cholecystectomy on 09/08) who was brought to the emergency room by family due to inability to urinate at home and multiple episodes of vomiting (NBNB). PMH significant for CKD, hypothyroidism, hyperlipidemia, osteoarthritis and BPH. Family at bedside provided history. Patient was discharged from hospital on 09/09. He reports he felt well prior to discharge. However on the way home from the hospital he had one episode of vomiting in the car. He vomited 3 more times at home and was not able to tolerate p.o. intake. In addition, he had complained to family of feeling lower abdominal pain ("suprapubic pain") and had been unable to urinate at home. Denies any fever, chills, confusion, SOB, CP, abdominal pain or diarrhea. Endorses wet cough and abdominal distention that started today, per . Patient did not take any narcotic pain medication after he was discharged. Denies any previous episodes of urinary retention in the past. The ED after placement of urinary cath pt putout 1.2L of urine with resolution of subrapubic abdominal pain. UA was found to be negative for infection. Of note patient was admitted on 09/06 for complaints of right upper quadrant abdominal pain and blood tinged emesis. During the hospitalization patient had EGD procedure done which showed hiatal hernia, gastritis of antrum and esophagitis of the distal esophagus. Biopsies from EGD are still pending. Patient was also diagnosed with gangrenous cholecystitis and underwent laparoscopic cholecystectomy on 09/08. Patient was to follow-up with GI and surgery as an outpatient. Review of Systems Constitutional: DENIES: Fever, Chills, Dizziness Eyes: DENIES: Blurred vision, Vision loss Respiratory: COMPLAINS OF: Cough (started today), DENIES: Shortness of breath Cardiovascular: COMPLAINS OF: Lower Extremity Edema, DENIES: Chest pain Gastrointestinal: COMPLAINS OF: Nausea, Vomiting, DENIES: Constipation, Diarrhea Genitourinary: COMPLAINS OF: Urinary incontinence Musculoskeletal: DENIES: Joint pain Integumentary: DENIES: Rash Hematologic/lymphatic: DENIES: Bruising Neurologic: DENIES: Headache, Localized weakness, Paresthesias Psychiatric: DENIES: Confusion Past Family Social History Past Medical History Chronic kidney disease Hypothyroidism Hyperlipidemia Hypertriglyceridemia Osteoarthritis bilateral knees BPH cholecystitis s/p lap cholecystectomy Past Surgical History Bilateral total knee arthroplasties Bilateral cataract surgery Allergies: Coded Allergies: No Known Allergies (Unverified Allergy, Unknown, 09/09/17) Family History Father: of ruptured appendix at age 36 Mother: of pulmonary edema at age 56 Siblings: 2 brothers and one sister all from cancer: Esophageal and colon Social History Marrital Status: Living Situation: Lives at home with 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 SKIN: No rashes, ecchymoses or lesions. Cool and dry. HEAD: Atraumatic. Normocephalic. No temporal or scalp tenderness. EYES: Pupils equal round and reactive. Extraocular motions intact. No scleral icterus. No injection or drainage. ENT: Nose without bleeding, purulent drainage or septal hematoma. Throat without erythema, tonsillar hypertrophy or exudate. Uvula midline. Airway patent. Dry mucous membranes. NECK: Trachea midline. No JVD or lymphadenopathy. Supple, nontender, no meningeal signs. CARDIOVASCULAR: Regular rate and rhythm without murmurs, gallops, or rubs. RESPIRATORY: Clear to auscultation. Breath sounds equal bilaterally. No wheezes , rales, or rhonchi. GASTROINTESTINAL: Abdomen soft, non-tender, distended. No hepato-splenomegaly, or palpable masses. No guarding. No CVA tenderness BL. MUSCULOSKELETAL: Extremities without clubbing, or cyanosis. No joint tenderness , effusion, or edema noted. No calf tenderness. +2 DP pulses BL. 1+ LE edema ( ankles and feet) BL. NEUROLOGICAL: AAOX3. Motor and sensory grossly within normal limits. Five out of 5 muscle strength in all muscle groups. Normal speech. Laboratory Laboratory Tests Test 6/23/18 20:03 09/09/17 23:56 Urine Color YELLOW Urine Turbidity HAZY Urine pH 5.0 Urine Specific [place] 1.023 Urine Protein 30 Urine Glucose (UA) NEG Urine Ketones TRACE Urine Occult Blood NEG Urine Nitrite NEG Urine Bilirubin NEG Urine Urobilinogen LESS THAN 2 Urine Leukocyte Esterase NEG Urine RBC 1 Urine WBC 2 Urine Mucus FEW Microscopic Urinalysis Comment CATH-CULT NOT IND White Blood Count 11.4 Red Blood Count 3.98 Hemoglobin 11.1 Hematocrit 33.0 Mean Corpuscular Volume 83.1 Mean Corpuscular Hemoglobin 27.9 Mean Corpuscular Hemoglobin Concent 33.6 Red Cell Distribution Width 14.7 Platelet Count 402 Mean Platelet Volume 10.3 Neutrophils (%) (Auto) 88.4 Lymphocytes (%) (Auto) 3.0 Monocytes (%) (Auto) 5.9 Eosinophils (%) (Auto) 1.9 Basophils (%) (Auto) 0.8 Neutrophils # (Auto) 10.1 Lymphocytes # (Auto) 0.3 Monocytes # (Auto) 0.7 Eosinophils # (Auto) 0.2 Basophils # (Auto) 0.1 CBC Comment DIFF FINAL Differential Comment Result Diagram: 09/09/17 2061 Caprini VTE Risk Assessment Caprini VTE Risk Assessment: Mod/High Risk (score >= 2) VTE Pharm Contraindication: High risk for bleeding Caprini Risk Assessment Model Point Value = 1 Point Value = 2 Point Value = 3 Point Value = 5 Age 41-60 Minor surgery BMI > 25 kg/m2 Swollen legs Varicose veins or History of unexplained or recurrent spontaneous Oral contraceptives or hormone replacement Sepsis (< 1 month) Serious lung disease, including pneumonia (< 1 month) Abnormal pulmonary function Acute myocardial infarction Congestive heart failure (< 1 month) History of inflammatory bowel disease Medical patient at bed rest Age 61-74 Arthroscopic surgery Major open surgery (> 45 min) Laparoscopic surgery (> 45 min) Malignancy Confined to bed (> 72 hours) Immobilizing plaster cast Central venous access Age >= 75 History of VTE Family history of VTE Factor V Leiden Prothrombin [id number] Lupus anticoagulant Anticardiolipin antibodies Elevated serum homocysteine Heparin-induced thrombocytopenia Other congenital or acquired thrombophilia Stroke (< 1 month) Elective arthroplasty Hip, pelvis, or leg fracture Acute spinal cord injury (< 1 month) Prophylaxis Regimen Total Risk Factor Score Risk Level Prophylaxis Regimen 0-1 Low Early ambulation 2 Moderate Order ONE of the following: *Sequential Compression Device (SCD) *Heparin 5000 units SQ BID 3-4 Higher Order ONE of the following medications: *Heparin 5000 units SQ TID *Enoxaparin/Lovenox 40 mg SQ daily (WT < 150 kg, CrCl > 30 mL/min) *Enoxaparin/Lovenox 30 mg SQ daily (WT < 150 kg, CrCl > 10-29 mL/min) *Enoxaparin/Lovenox 30 mg SQ BID (WT < 150 kg, CrCl > 30 mL/min) AND/OR *Sequential Compression Device (SCD) 5 or more Highest Order ONE of the following medications: *Heparin 5000 units SQ TID (Preferred with Epidurals) *Enoxaparin/Lovenox 40 mg SQ daily (WT < 150 kg, CrCl > 30 mL/min) *Enoxaparin/Lovenox 30 mg SQ daily (WT < 150 kg, CrCl > 10-29 mL/min) *Enoxaparin/Lovenox 30 mg SQ BID (WT < 150 kg, CrCl > 30 mL/min) AND *Sequential Compression Device (SCD) Assessment and Plan Assessment and Plan Patient is a 87-year-old male with recent diagnosis of E. coli bacteremia and gangrenous cholecystitis (s/p laparoscopic cholecystectomy on 09/08) presenting with: Code Status Full code Discussed Condition With Dr. Ramachandran Problem List: (1) S/P laparoscopic cholecystectomy ICD Codes: Z90.49 - Acquired absence of other specified parts of digestive tract Status: Acute Plan: Patient is s/p lap seth on 09/08 due to gangrenous cholecystitis Follow up: repeat Blood cx ID consulted, appreciate recommendation Antibiotic history: Levo 750 mg IV Q24h 09/10-- Flagyl 500mg IV Q8h 09/10-- (2) Bacteremia due to Escherichia coli ICD Codes: R78.81 - Bacteremia Status: Acute Plan: Patient found to have E. coli bacteremia based on positive blood cx collected on 09/06 Patient does not appear septic on exam Mild leukocytosis of 11.4 afebrile, slight tachycardic at 101 C/w antibiotics mentioned in above plan per ID rec c/w IVF at maintenance monitor vs Follow up repeat blood cx collected 09/09 (3) Acute urinary retention ICD Codes: R33.8 - Other retention of urine Status: Acute Plan: Patient with 1 day h/o of urinary retention after being discharge from hospital yesterday. He was unable to void at home In the the ED wong cath was placed and output of 1.2L was achieved UA negative for infection monitor I/Os c/w wong cath in place Follow up -[facility] (4) BPH (benign prostatic hyperplasia) ICD Codes: N40.0 - Enlarged prostate without lower urinary tract symptoms Status: Chronic Plan: c/w home med (5) Chronic renal insufficiency ICD Codes: N18.9 - Chronic kidney disease, unspecified Status: Chronic Plan: Baseline creatinine of 1.4, creatinine today 1.14 Continue to monitor Avoid nephrotoxic agents (6) Hypothyroid ICD Codes: E03.9 - Hypothyroidism Status: Chronic Plan: Continue home medication (7) Nutrition, metabolism, and development symptoms ICD Codes: R63.8 - Other symptoms and signs concerning food and fluid intake Plan: Fluids: 125 mls/hr NS Electrolytes: replete as needed, continue to monitor Nutrition: NPO pending swallow evaluation DVT ppx: SCDs (pt with recent admission for GI bleed) GI ppx: protonix 40mg IV Physician Certification 2 Midnight Certification Type: Admission for Inpatient Services Order for Inpatient Services The services are ordered in accordance with Medicare regulations or non- Medicare payer requirements, as applicable. In the case of services not specified as inpatient-only, they are appropriately provided as inpatient services in accordance with the 2-midnight benchmark. Estimated LOS (days): 5 days is the estimated time the patient will need to remain in the hospital, assuming treatment plan goals are met and no additional complications. Post-Hospital Plan: Not yet determined Marco Antonio Malhotra MD, R1 Sep 10, 2017 01:11
[2017-09-10 01:25] LABS: ALBUMIN 1.9 GM/DL (3.4-5.0); ALKALINE PHOSPHATASE 125 U/L (45-117); ALT (GPT) 32 U/L (12-78); AST (GOT) 120 U/L (15-37); BICARBONATE 22.1 MEQ/L (21.0-32.0); BLOOD UREA NITROGEN 17 MG/DL (7-18); CHLORIDE 109 MEQ/L (98-107); CREATININE 1.14 MG/DL (0.60-1.30); GLOMERULAR FILTRATION RATE 61 ML/MIN (>89); GLUCOSE,RANDOM 123 MG/DL (74-106); SODIUM (NA) 139 MEQ/L (136-145); TOTAL BILIRUBIN ADULT 0.8 MG/DL (0.2-1.0); TOTAL PROTEIN 6.7 GM/DL (6.4-8.2)
[2017-09-10] MEDS ORDERED: MAGNESIUM HYDROXIDE SUSP 30 ML CUP PO PRN (01:30)
[2017-09-10] MEDS ORDERED: BISACODYL 10 MG SUPP RECTAL PRN (01:30)
[2017-09-10] MEDS ORDERED: SODIUM CHLORIDE 0.9% FLUSH 10 ML FLUSH IV FLUSH PRN (01:30)
[2017-09-10] MEDS ORDERED: ONDANSETRON ODT 4 MG TAB PO PRN (01:30)
[2017-09-10] MEDS ORDERED: LACTULOSE SYRUP 20 GM/30 ML CUP PO PRN (01:30)
[2017-09-10] MEDS ORDERED: SENNOSIDES 8.6 MG TAB PO PRN (01:30)
[2017-09-10] MEDS ORDERED: ACETAMINOPHEN 325 MG TAB PO PRN (01:30)
[2017-09-10] MEDS ORDERED: NALOXONE HCL 0.4 MG/ML AMP IV PUSH PRN (01:30)
[2017-09-10] MEDS: metroNIDAZOLE 500 MG INJ 100 ML IV SCH ×3 (01:57→18:36)
[2017-09-10] MEDS: SODIUM CHLOR 0.9% 1000 ML INJ 1,000 ML IV SCH ×2 (02:15→09:56)
[2017-09-10] MEDS: PANTOPRAZOLE SODIUM 40 MG VIAL IV PUSH SCH (02:45)
[2017-09-10] MEDS ORDERED: ONDANSETRON ODT 4 MG TAB SL PRN (02:45)
[2017-09-10] MEDS ORDERED: LEVOFLOXACIN 750 MG PREMIX INJ 150 ML IV SCH (03:00)
[2017-09-10] MEDS: LEVOTHYROXINE SODIUM 100 MCG TAB PO SCH (06:28)
--- NOTE | 2017-09-10 08:59 | HHI.PR ---
Addendum to Inpatient Note Addendum Reason: Additional Documentation Additional Information Patient resting comfortably in bed this morning. Patient that he was doing very well before discharge. He was able tolerate his diet and urinate. Surgery cleared patient for discharge with Augmentin. However, patient upon turning home, he started having urinary retention and N/V. Was unable to keep his food down. Patient was brought back to the hospital. Patient was very apologetic this morning about wanting to go home yesterday. Informed patient that it was not his fault. Patient has since had a Gipson catheter placed. 1.2 L was removed. Patient has been n.p.o. since last night. Patient is feeling a lot better this morning. He no longer has abdominal pain. He denies any fevers, chest pain, shortness of breath, nausea vomiting, diarrhea, dysuria. GENERAL: This is a well-nourished, well-developed patient, in no apparent distress, resting comfortably in bed. EYES: Pupils equal round and reactive. Extraocular motions intact. No scleral icterus. No injection or drainage. ENT: Nose without bleeding, purulent drainage or septal hematoma. Throat without erythema, tonsillar hypertrophy or exudate. Uvula midline. Airway patent. Dry mucous membranes. NECK: Trachea midline. No JVD or lymphadenopathy. Supple, nontender, no meningeal signs. CARDIOVASCULAR: Regular rate and rhythm without murmurs, gallops, or rubs. RESPIRATORY: Clear to auscultation. Breath sounds equal bilaterally. No wheezes , rales, or rhonchi. GASTROINTESTINAL: Abdomen soft, non-tender, nondistended. No hepato- splenomegaly, or palpable masses. No guarding. No CVA tenderness BL. MUSCULOSKELETAL: Extremities without clubbing, or cyanosis. No joint tenderness , effusion, or edema noted. No calf tenderness. +2 DP pulses BL. 1+ LE edema ( ankles and feet) BL. NEUROLOGICAL: AAOX3. Motor and sensory grossly within normal limits. Five out of 5 muscle strength in all muscle groups. Normal speech. A/P: 87-year-old male with recent sepsis secondary to gangrenous cholecystitis ( s/p laparoscopic cholecystectomy on 09/08) presents with urinary retention. -Gipson catheter in place. Patient has hx of BPH, currently on Flomax and Proscar. Urology consulted, appreciate recommendations. -E.coli bacteremia, blood cultures E.coli positive on 09/06, pansensitive, continue Levaquin and Flagyl. Will continue to followup repeat blood cultures from 09/09. ID consulted to assist with abx management. Appreciate recommendations. -Start clear liquid diet, progress as tolerated -Decreased fluids to 70mls/hr -Zofran for N/V (Ania Lawson MD R1) Addendum Reason: Additional Documentation Additional Information Patient seen and examined. Case reviewed and discussed with the resident team. Agree with plan of care as discussed with me and documented in the resident note. reviewed this note and his H&P. unfortunately, he has a large prostate and had urinary retention which is not unusual after surgery. will ask Urology to see him. (Mayra Green MD) Ania Lawson MD R1 Sep 10, 2017 08:58 Mayra Green MD Sep 10, 2017 11:35
[2017-09-10] MEDS ORDERED: TAMSULOSIN HCL 0.4 MG CAP PO SCH (09:00)
[2017-09-10] MEDS: SODIUM CHLORIDE 0.9% FLUSH 10 ML FLUSH IV FLUSH SCH ×2 (09:00→22:02)
[2017-09-10] MEDS: DOCUSATE SODIUM 50 MG/SENNA 8.6 MG TAB PO SCH ×2 (09:54→21:00)
[2017-09-10] MEDS: FENOFIBRATE 145 MG TAB PO SCH (09:54)
[2017-09-10] MEDS: FINASTERIDE 5 MG TAB PO SCH (09:54)
--- NOTE | 2017-09-10 11:50 | MB ---
cc: CooperLaureanoArmin W DO DATE: 09/10/2017 HISTORY OF PRESENT ILLNESS: Mr. Escobar is a pleasant 87-year-old male, who recently was discharged from the hospital after undergoing a laparoscopic cholecystectomy for Escherichia coli bacteremia and gangrenous cholecystitis on 09/08/2017. He was then discharged on 09/09/2017, and then went home and developed urinary retention. Upon presentation in the emergency room, he had 1.2 liters of urine drained upon placement of the Gipson catheter. Per report, there was no trouble placing the Gipson catheter. He does see Dr. Joseph and states that he does take Proscar, as well as Flomax. His urinating pattern prior to his cholecystectomy was nocturia 2-3 times at night with a moderate stream. He denies any history of urinary tract infections, gross hematuria, or stones. Does note a family history of prostate cancer. PAST MEDICAL HISTORY: Includes hypothyroidism, hyperlipidemia, benign prostatic hypertrophy, osteoarthritis, hypertriglyceridemia, chronic kidney disease, cholecystitis. PAST SURGICAL HISTORY: Laparoscopic cholecystectomy on 09/08/2017, bilateral knee replacements and cataract surgery. ALLERGIES: HE HAS NO KNOWN DRUG ALLERGIES. MEDICATIONS: Current medications: Please refer to the chart. Please note, the patient has been on Flomax 0.4 mg at bedtime, as well as Proscar 5 mg daily. REVIEW OF SYSTEMS: He denies abdominal pain at present. Denies any nausea or vomiting at present or constipation. Denies chest pain or shortness of breath. Does note occasional cough. Denies blurry vision or vision loss. Denies confusion. Denies neurologic problems, rashes or psychiatric problems. PHYSICAL EXAMINATION: VITAL SIGNS: Presently, temperature 98.2, heart rate 78, respiratory rate 18, 120/66, 93% on room air. GENERAL: A well-developed, well-nourished, 87-year-old male in no acute distress. HEENT: Normocephalic, atraumatic. Pupils equal, round, regular, reactive to light. Extraocular movements intact. NECK: Supple. HEART: Regular rate and rhythm. LUNGS: Clear to auscultation. ABDOMEN: Soft, nontender, nondistended. GENITOURINARY: Gipson catheter in place. Normal phallus. Testes are descended. EXTREMITIES: No evidence of cyanosis, clubbing or edema. NEUROLOGIC: Cranial nerves 2-12 are intact. LABORATORY DATA: White count 11.4, hemoglobin 11.1, hematocrit 33.0, platelet count of 42. Sodium 139, potassium 4.5, chloride 109, CO2 22.1. BUN is 17, creatinine 1.1, glucose of 123. Urinalysis has 1 red cell and 2 white cells. ASSESSMENT AND PLAN: An 87-year-old male status post cholecystectomy with urinary retention. Recommend doubling Flomax to 0.4 mg p.o. b.i.d. Maintain Gipson catheter for 1 week. The patient should followup in the office next Monday for a void trial. Encourage ambulation and reduce narcotics as appropriate. Thank you for the consult and allowing me to participate in the care of the patient. Armin Gamboa DO SWT/TL , 10:11 AM , 11:48 AM
--- NOTE | 2017-09-10 15:43 | PD.ID.CON ---
History of Present Illness Service ID Consult Requested By Reason for Consult Evaluation and MMent of E.coli bacteremia in a patient with recent gangrenous cholecystitis s/p surgery Primary Care Physician Syed Joseph MD Diagnoses: History of Present Illness is an 87 y/o CM with recent diagnosis of sepsis, gangrenous cholecystitis with E.coli bacteremia. Patient underwent a lap seth on 2017. Patient was discharged on oral augmentin for 7 days. Patient had blood cultures positive who was brought to the emergency room by family due to inability to urinate at home and multiple episodes of vomiting (NBNB). PMH significant for CKD, hypothyroidism, hyperlipidemia, osteoarthritis and BPH. Family at bedside provided history. Patient was discharged from hospital on 09/09. He reports he felt well prior to discharge. However on the way home from the hospital he had one episode of vomiting in the car. He vomited 3 more times at home and was not able to tolerate p.o. intake. In addition, he had complained to family of feeling lower abdominal pain ("suprapubic pain") and had been unable to urinate at home. Denies any fever, chills, confusion, SOB, CP, abdominal pain or diarrhea. Endorses wet cough and abdominal distention that started today, per . Patient did not take any narcotic pain medication after he was discharged. Denies any previous episodes of urinary retention in the past. The ED after placement of urinary cath pt putout 1.2L of urine with resolution of subrapubic abdominal pain. UA was found to be negative for infection. Of note patient was admitted on 09/06 for complaints of right upper quadrant abdominal pain and blood tinged emesis. During the hospitalization patient had EGD procedure done which showed hiatal hernia, gastritis of antrum and esophagitis of the distal esophagus. Biopsies from EGD are still pending. Patient was also diagnosed with gangrenous cholecystitis and underwent laparoscopic cholecystectomy on 09/08. Patient was to follow-up with GI and surgery as an outpatient. Past Family Social History Allergies: Coded Allergies: No Known Allergies (Unverified Allergy, Unknown, 09/09/17) Past Medical History Chronic kidney disease Hypothyroidism Hyperlipidemia Hypertriglyceridemia Osteoarthritis bilateral knees BPH cholecystitis s/p lap cholecystectomy Past Surgical History Bilateral total knee arthroplasties Bilateral cataract surgery lap cholecystectomy for gangrenous cholecystitis. Reported Medications Reported Meds & Active Scripts Active Zofran Odt (Ondansetron Odt) 8 Mg Tab 8 Mg SL Q8H PRN x Flagyl (Metronidazole) 500 Mg Tab 500 Mg PO Q8HR ALT NEB 7 Days x Levaquin (Levofloxacin) 750 Mg Tablet 750 Mg PO DAILY 14 Days x Hydrocodone-Acetamin 7.5-325 (Hydrocodone/Acetaminophen) 7.5 Mg-325 Mg Tablet 1 Tab PO Q4H PRN Proscar (Finasteride) 5 Mg Tab 5 Mg PO DAILY Do not crush. Tamsulosin (Tamsulosin HCl) 0.4 Mg Cap 0.4 Mg PO DAILY Fenofibrate 160 Mg Tab 160 Mg PO DAILY Levothyroxine (Levothyroxine Sodium) 100 Mcg Tab 100 Mcg PO DAILY Reported Aspirin 81 Mg Chew 81 Mg CHEW DAILY Active Ordered Medications Current Medications Medications (Trade) Dose Ordered Sig/Mark Route Start Time Stop Time Status Last Admin Sodium Chloride 1,000 ml @ 70 mls/hr [id number] IV 09/10/17 01:22 09/10/17 09:56 (NS Flush) 2 ml UNSCH PRN IV FLUSH 09/10/17 01:30 (NS Flush) 2 ml BID IV FLUSH 09/10/17 09:00 (Tylenol) 650 mg Q4H PRN PO 09/10/17 01:30 (Narcan Inj) 0.4 mg UNSCH PRN IV PUSH 09/10/17 01:30 (Rosaura-Colace) 1 tab BID PO 09/10/17 09:00 09/10/17 09:54 (Milk Of Magnesia Liq) 30 ml Q12H PRN PO 09/10/17 01:30 (Senokot) 17.2 mg Q12H PRN PO 09/10/17 01:30 (Dulcolax Supp) 10 mg DAILY PRN RECTAL 09/10/17 01:30 (Zofran Odt) 4 mg Q6H PRN PO 09/10/17 01:30 Metronidazole 100 ml @ 100 mls/hr Q8H IV 09/10/17 02:00 09/10/17 09:55 (Proscar) 5 mg DAILY PO 09/10/17 09:00 09/10/17 09:54 (Synthroid) 100 mcg DAILY@0600 PO 09/10/17 06:00 09/10/17 06:28 (Zofran Odt) 8 mg Q8H PRN SL 09/10/17 02:45 (Tricor) 145 mg DAILY PO 09/10/17 09:00 09/10/17 09:54 (Protonix Inj) 40 mg Q24H IV PUSH 09/10/17 02:45 Levofloxacin/ Dextrose 150 ml @ 100 mls/hr Q48H IV 09/12/17 04:00 (Flomax) 0.4 mg Q12HR PO 09/10/17 21:00 Family History Father: of ruptured appendix at age 36 Mother: of pulmonary edema at age 56 Siblings: 2 brothers and one sister all from cancer: Esophageal and colon Social History Marrital Status: Living Situation: Lives at home with 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 SKIN: No rashes, ecchymoses or lesions. Cool and dry. HEAD: Atraumatic. Normocephalic. No temporal or scalp tenderness. EYES: Pupils equal round and reactive. Extraocular motions intact. No scleral icterus. No injection or drainage. ENT: Nose without bleeding, purulent drainage or septal hematoma. Throat without erythema, tonsillar hypertrophy or exudate. Uvula midline. Airway patent. NECK: Trachea midline. Supple, nontender, no meningeal signs. CARDIOVASCULAR: HS audible. RESPIRATORY: Clear to auscultation. Breath sounds equal bilaterally. No wheezes , rales, or rhonchi. GASTROINTESTINAL: Abdomen soft, diffuse tenderness minimal. Surgical areas ok. No guarding or rigidity. MUSCULOSKELETAL: Extremities without clubbing, cyanosis, or edema. NEUROLOGICAL: Awake and alert. Non focal exam Psych cooperative IV line sites with no e.o infection Laboratory Laboratory Tests Test 09/09/17 20:03 09/09/17 23:56 Urine Color YELLOW Urine Turbidity HAZY Urine pH 5.0 Urine Specific Gilchrist 1.023 Urine Protein 30 Urine Glucose (UA) NEG Urine Ketones TRACE Urine Occult Blood NEG Urine Nitrite NEG Urine Bilirubin NEG Urine Urobilinogen LESS THAN 2 Urine Leukocyte Esterase NEG Urine RBC 1 Urine WBC 2 Urine Mucus FEW Microscopic Urinalysis Comment CATH-CULT NOT IND White Blood Count 11.4 Red Blood Count 3.98 Hemoglobin 11.1 Hematocrit 33.0 Mean Corpuscular Volume 83.1 Mean Corpuscular Hemoglobin 27.9 Mean Corpuscular Hemoglobin Concent 33.6 Red Cell Distribution Width 14.7 Platelet Count 402 Mean Platelet Volume 10.3 Neutrophils (%) (Auto) 88.4 Lymphocytes (%) (Auto) 3.0 Monocytes (%) (Auto) 5.9 Eosinophils (%) (Auto) 1.9 Basophils (%) (Auto) 0.8 Neutrophils # (Auto) 10.1 Lymphocytes # (Auto) 0.3 Monocytes # (Auto) 0.7 Eosinophils # (Auto) 0.2 Basophils # (Auto) 0.1 CBC Comment DIFF FINAL Differential Comment Blood Urea Nitrogen 17 Creatinine 1.14 Random Glucose 123 Total Protein 6.7 Albumin 1.9 Calcium Level 8.0 Alkaline Phosphatase 125 Aspartate Amino Transf (AST/SGOT) 120 Alanine Aminotransferase (ALT/SGPT) 32 Total Bilirubin 0.8 Sodium Level 139 Potassium Level 4.5 Chloride Level 109 Carbon Dioxide Level 22.1 Anion Gap 8 Estimat Glomerular Filtration Rate 61 Result Diagram: 09/09/17 2356 09/09/17 2356 Assessment and Plan Assessment and Plan Sepsis on recent admission ongoing readmitted for positive blood cultures E.coli bacteremia likely secondary to Gangrenous cholecystitis. Gangrenous cholecystitis s/p cholecystectomy. Retention of urine (has prostate issues) Post op nausea and vomiting resolving now. Recs Continue Levaquin IV Continue Flagyl IV When no more N/V and able to tolerate oral may switch to oral. Follow blood cultures to resume care in am. Magaly Nascimento MD Sep 10, 2017 15:43
[2017-09-10] MEDS: TAMSULOSIN HCL 0.4 MG CAP PO SCH (22:01)
[2017-09-11] VITALS (9 sets, daily range): BP systolic 127–146; BP diastolic 61–76; PULSE 77–88; RESP 15–19; TEMP 97.4–99.5; O2SAT 92–100
[2017-09-11] MEDS: SODIUM CHLOR 0.9% 1000 ML INJ 1,000 ML IV SCH (00:36)
[2017-09-11] MEDS: PANTOPRAZOLE SODIUM 40 MG VIAL IV PUSH SCH (03:27)
[2017-09-11] MEDS: metroNIDAZOLE 500 MG INJ 100 ML IV SCH ×3 (03:27→17:59)
[2017-09-11] MEDS: LEVOTHYROXINE SODIUM 100 MCG TAB PO SCH (05:16)
[2017-09-11 08:18] LABS: HEMATOCRIT 30.6 % (39.0-51.0); HEMOGLOBIN 10.3 GM/DL (13.0-17.0); MEAN CELL VOLUME 84.1 FL (80.0-100.0); MEAN CORPUSCULAR HEMOGLOBIN 28.3 PG (27.0-34.0); MEAN CORPUSCULAR HGB CONC 33.7 % (32.0-36.0); MEAN PLATELET VOLUME 9.6 FL (7.0-11.0); PLATELET COUNT 310 TH/MM3 (150-450); RED BLOOD COUNT 3.64 MIL/MM3 (4.50-5.90); RED CELL DISTRIBUTION WIDTH 14.7 % (11.6-17.2); WHITE BLOOD COUNT 9.8 TH/MM3 (4.0-11.0)
[2017-09-11 08:57] LABS: BICARBONATE 22.1 MEQ/L (21.0-32.0); CALCIUM 7.6 MG/DL (8.5-10.1); CREATININE 0.95 MG/DL (0.60-1.30)
[2017-09-11] MEDS: SODIUM CHLORIDE 0.9% FLUSH 10 ML FLUSH IV FLUSH SCH ×2 (09:00→21:31)
--- NOTE | 2017-09-11 10:01 | HHI.FPPN ---
Subjective Remarks No acute events overnight. Patient resting comfortably in bed. at bedside. Patient states that he was able to tolerate his full liquid diet yesterday.nausea vomiting. Will transition to a regular basic diet today. Patient is currently without pain. He denies chest pain, shortness of breath, abdominal pain, and diarrhea. States that his last bowel movement was yesterday. No other complaints this morning. (Ania Lawson MD R1) Objective Vitals Vital Signs Date Time Temp Pulse Resp B/P (MAP) Pulse Ox O2 Delivery O2 Flow Rate FiO2 09/11/17 07:35 100 Nasal Cannula 2.00 09/11/17 07:34 94 21 09/11/17 07:00 98.3 78 17 141/68 (92) 92 09/11/17 06:34 98.0 09/11/17 03:48 97.4 77 15 134/74 (94) 94 09/11/17 00:11 98.1 87 19 132/61 (84) 93 09/10/17 19:47 98.8 68 17 119/60 (79) 92 09/10/17 19:28 93 09/10/17 15:40 98.0 80 18 119/66 (83) 94 09/10/17 12:00 98.3 76 18 126/61 (82) 94 I/O 09/10/17 09/10/17 09/10/17 09/11/17 09/11/17 09/11/17 07:00 15:00 23:00 07:00 15:00 23:00 Intake Total 100 ml 999 ml Output Total 300 ml 880 ml Balance -300 ml 100 ml 119 ml Intake Oral 120 ml IV Total 100 ml 879 ml Output Urine Total 300 ml 880 ml # Bowel Movements 1 (Ania Lawson MD R1) Result Diagram: 09/11/1758 09/11/17 0658 Objective Remarks GENERAL: Pleasant, well-nourished, well-developed patient, in no apparent distress, resting comfortably in bed. CARDIOVASCULAR: Regular rate and rhythm without murmurs, gallops, or rubs. RESPIRATORY: Clear to auscultation. Breath sounds equal bilaterally. No wheezes , rales, or rhonchi. GASTROINTESTINAL: Abdomen soft, non-tender, nondistended. No hepato- splenomegaly, or palpable masses. No guarding. No CVA tenderness BL. MUSCULOSKELETAL: Extremities without clubbing, or cyanosis. No joint tenderness , effusion, or edema noted. No calf tenderness. +2 DP pulses BL. 1+ LE edema ( ankles and feet) BL. NEUROLOGICAL: AAOX3. (Ania Lawson MD R1) A/P Assessment and Plan Patient is a 87-year-old male with recent diagnosis of E. coli bacteremia and gangrenous cholecystitis (s/p laparoscopic cholecystectomy on 09/08) presenting with: Discharge Planning Pending clinical improvement Transition to PO abx tonight if tolerated anticipate discharge in 1-2 days Patient will follow up with general surgery and urology outpatient (Ania Lawson MD R1) Attending Attestation Medical rounds performed with Dr Tito Lawson Patient interviewed and examined Detail discussion regarding pts medical care held with Dr Lawson Agree with contents of note See Braeden (Eddie Aaron MD) Problem List: (1) S/P laparoscopic cholecystectomy ICD Codes: Z90.49 - Acquired absence of other specified parts of digestive tract Status: Acute Plan: Patient is s/p lap seth on 09/08 due to gangrenous cholecystitis ID consulted, appreciate recommendation Antibiotic history: Continue Levo 750 mg IV Q24h (started 09/10-- Continue Flagyl 500mg IV Q8h (started 09/10-- We will transition to p.o. tonight if patient tolerates regular diet w/o N/V Repeat blood cultures 09/09/17- no growth in 1 day (2) Bacteremia due to Escherichia coli ICD Codes: R78.81 - Bacteremia Status: Acute Plan: Patient found to have E. coli bacteremia based on positive blood cx collected on 09/06 WBC 9.8 today Repeat blood cx collected 09/09- no growth in 1 day C/w antibiotics mentioned in above plan per ID rec (3) Acute urinary retention ICD Codes: R33.8 - Other retention of urine Status: Acute Plan: Patient with 1 day h/o of urinary retention after being discharge from hospital 09/09 He was unable to void at home In the the ED wong cath was placed and output of 1.2L was achieved UA negative for infection Urology consulted, appreciated recommendations -c/w wong cath in place, continue for 1 week -Increased to Flomax to 0.4mg PO BID -Patient will followup in the office this Monday for void trial -encourage ambulation and reduce narcotics as appropriate (4) BPH (benign prostatic hyperplasia) ICD Codes: N40.0 - Enlarged prostate without lower urinary tract symptoms Status: Chronic Plan: -Continue with flomax and proscar (5) Chronic renal insufficiency ICD Codes: N18.9 - Chronic kidney disease, unspecified Status: Chronic Plan: Baseline creatinine of 1.4, creatinine improved, 0.95 today Continue to monitor Avoid nephrotoxic agents (6) Hypothyroid ICD Codes: E03.9 - Hypothyroidism Status: Chronic Plan: Continue home levothyroxine (7) Nutrition, metabolism, and development symptoms ICD Codes: R63.8 - Other symptoms and signs concerning food and fluid intake Plan: Fluids: PO hydration Electrolytes: replete as needed, continue to monitor Nutrition: regular diet DVT ppx: SCDs (pt with recent admission for GI bleed) GI ppx: protonix 40mg IV q24h (Ania Lawson MD R1) Ania Lawson MD R1 Sep 11, 2017 10:00 Eddie Aaron MD Sep 11, 2017 19:38
[2017-09-11] MEDS: FENOFIBRATE 145 MG TAB PO SCH (10:22)
[2017-09-11] MEDS: FINASTERIDE 5 MG TAB PO SCH (10:22)
[2017-09-11] MEDS: DOCUSATE SODIUM 50 MG/SENNA 8.6 MG TAB PO SCH ×2 (10:22→21:32)
[2017-09-11] MEDS: TAMSULOSIN HCL 0.4 MG CAP PO SCH ×2 (10:23→21:31)
[2017-09-11] MEDS ORDERED: POTASSIUM CHLORIDE 20 MEQ CONTROLLED RELEASE TAB PO ONE (11:00)
--- NOTE | 2017-09-11 19:44 | HHI.IDPN ---
Note Infectious Disease Note ID follow-up. Patient known to me from last hospitalization. He underwent laparoscopic cholecystectomy. Was found to have gangrenous cholecystitis. Patient was discharged home and developed nausea and vomiting and difficulty passing urine. He was catheterized and 1.2 L of urine returned. He has a Gipson catheter in place. He was noted to have 700 cc urine earlier today. He reports that he had some chills earlier. He gets nausea. Reports that he is hesitant to eat because of the nausea which he feels will return. Afebrile. Daughter says that she cleaned him up and that he had loose stools. She reports 2 loose stools today. Repeat blood culture has no growth in 2 days. He is on IV Levaquin. He denies abdominal pain. Previously admitted on 09/05/2017 with nausea, vomiting, diarrhea and right upper quadrant abdominal pain. The patient had been sick for about a week and he had very marked decrease in appetite. He had positive blood cultures for E. coli. He underwent cholecystectomy and subsequently was discharged on 09/09 on p.o. antibiotics. He was readmitted The same day because of the nausea and vomiting and urinary retention. PAST MEDICAL HISTORY: Benign prostatic hypertrophy, hypothyroidism, hyperlipidemia, hypertriglyceridemia, chronic kidney disease, osteoarthritis, bilateral total knee replacement, and cataract surgery, bilateral. ALLERGIES: NO KNOWN DRUG ALLERGIES. Current Medications Medications (Trade) Dose Ordered Sig/Mark Route PRN Reason Start Time Stop Time Status Last Admin Dose Admin Sodium Chloride (NS Flush) 2 ml UNSCH PRN IV FLUSH FLUSH AFTER USING IV ACCESS 09/10/17 01:30 Sodium Chloride (NS Flush) 2 ml BID IV FLUSH 09/10/17 09:00 09/11/17 09:00 Acetaminophen (Tylenol) 650 mg Q4H PRN PO PAIN 1-10 AND/OR FEVER >101F 09/10/17 01:30 Naloxone HCl (Narcan Inj) 0.4 mg UNSCH PRN IV PUSH SEE LABEL COMMENTS 09/10/17 01:30 Senna/Docusate Sodium (Rosaura-Colace) 1 tab BID PO 09/10/17 09:00 09/11/17 10:22 Magnesium Hydroxide (Milk Of Magnesia Liq) 30 ml Q12H PRN PO Mild constipation 09/10/17 01:30 Sennosides (Senokot) 17.2 mg Q12H PRN PO Moderate constipation 09/10/17 01:30 Bisacodyl (Dulcolax Supp) 10 mg DAILY PRN RECTAL SEVERE CONSITIPATION 09/10/17 01:30 Ondansetron HCl (Zofran Odt) 4 mg Q6H PRN PO N/V 09/10/17 01:30 Metronidazole 100 ml @ 100 mls/hr Q8H IV 09/10/17 02:00 09/11/17 17:59 Finasteride (Proscar) 5 mg DAILY PO 09/10/17 09:00 09/11/17 10:22 Levothyroxine Sodium (Synthroid) 100 mcg DAILY@0600 PO 09/10/17 06:00 09/11/17 05:16 Ondansetron HCl (Zofran Odt) 8 mg Q8H PRN SL NAUSEA OR VOMITING 09/10/17 02:45 Fenofibrate (Tricor) 145 mg DAILY PO 09/10/17 09:00 09/11/17 10:22 Pantoprazole Sodium (Protonix Inj) 40 mg Q24H IV PUSH 09/10/17 02:45 09/11/17 03:27 Levofloxacin/ Dextrose 150 ml @ 100 mls/hr Q48H IV 09/12/17 04:00 Tamsulosin HCl (Flomax) 0.4 mg Q12HR PO 09/10/17 21:00 09/11/17 10:23 Zolpidem Tartrate (Ambien) 5 mg HS PRN PO INSOMNIA 09/11/17 21:00 SOCIAL HISTORY: The patient is . No tobacco, no alcohol, no illicit drugs. FAMILY HISTORY: Noncontributory. Objective: Vital Signs Date Time Temp Pulse Resp B/P (MAP) Pulse Ox O2 Delivery O2 Flow Rate FiO2 09/11/17 16:00 98.6 86 16 127/66 (86) 92 09/11/17 12:00 98.7 78 16 143/67 (92) 92 09/11/17 07:35 100 Nasal Cannula 2.00 09/11/17 07:34 94 21 09/11/17 07:00 98.3 78 17 141/68 (92) 92 09/11/17 06:34 98.0 09/11/17 03:48 97.4 77 15 134/74 (94) 94 09/11/17 00:11 98.1 87 19 132/61 (84) 93 09/10/17 19:47 98.8 68 17 119/60 (79) 92 Laboratory Tests Test 09/09/17 23:56 09/11/17 06:58 White Blood Count 11.4 TH/MM3 9.8 TH/MM3 Red Blood Count 3.98 MIL/MM3 3.64 MIL/MM3 Hemoglobin 11.1 GM/DL 10.3 GM/DL Hematocrit 33.0 % 30.6 % Mean Corpuscular Volume 83.1 FL 84.1 FL Mean Corpuscular Hemoglobin 27.9 PG 28.3 PG Mean Corpuscular Hemoglobin Concent 33.6 % 33.7 % Red Cell Distribution Width 14.7 % 14.7 % Platelet Count 402 TH/MM3 310 TH/MM3 Mean Platelet Volume 10.3 FL 9.6 FL Neutrophils (%) (Auto) 88.4 % Lymphocytes (%) (Auto) 3.0 % Monocytes (%) (Auto) 5.9 % Eosinophils (%) (Auto) 1.9 % Basophils (%) (Auto) 0.8 % Neutrophils # (Auto) 10.1 TH/MM3 Lymphocytes # (Auto) 0.3 TH/MM3 Monocytes # (Auto) 0.7 TH/MM3 Eosinophils # (Auto) 0.2 TH/MM3 Basophils # (Auto) 0.1 TH/MM3 CBC Comment DIFF FINAL Differential Comment Laboratory Tests Test 09/09/17 23:56 09/11/17 06:58 Blood Urea Nitrogen 17 MG/DL 12 MG/DL Creatinine 1.14 MG/DL 0.95 MG/DL Random Glucose 123 MG/DL 90 MG/DL Total Protein 6.7 GM/DL Albumin 1.9 GM/DL Calcium Level 8.0 MG/DL 7.6 MG/DL Alkaline Phosphatase 125 U/L Aspartate Amino Transf (AST/SGOT) 120 U/L Alanine Aminotransferase (ALT/SGPT) 32 U/L Total Bilirubin 0.8 MG/DL Sodium Level 139 MEQ/L 139 MEQ/L Potassium Level 4.5 MEQ/L 3.1 MEQ/L Chloride Level 109 MEQ/L 105 MEQ/L Carbon Dioxide Level 22.1 MEQ/L 22.1 MEQ/L Anion Gap 8 MEQ/L 12 MEQ/L Estimat Glomerular Filtration Rate 61 ML/MIN 75 ML/MIN PHYSICAL EXAMINATION: GENERAL: No acute distress. He is awake and alert and oriented. HEENT: Extraocular movements are grossly intact. Pupils reactive to light. No icterus. Oropharynx has moist mucosa. No lesions. NECK: Supple, no adenopathy. LUNGS: Clear to auscultation. HEART: Regular S1 and S2. No murmurs, rubs or gallops. ABDOMEN: He is obese, soft, no tenderness. EXTREMITIES: No clubbing, cyanosis or edema. SKIN: No rash. Warm and dry. NEUROLOGIC: No gross focal finding. PSYCHIATRIC: Calm and cooperative. Gipson catheter has clear urine. IMPRESSION: 1. Escherichia coli sepsis secondary to gallbladder disease. 2. Acute gangrenous cholecystitis. Postop laparoscopic cholecystectomy. 3. Urinary retention. 4. Diarrhea. Rule out C. difficile. RECOMMENDATIONS: 1. Obtain C. difficile PCR. 2. Continue Levaquin. 3. Stop the IV metronidazole which could be contributing to the nausea. 4. Give p.o. vancomycin while awaiting testing for C. difficile. 5. Monitor the repeat blood culture until final. Von Grimm MD Sep 11, 2017 19:43
[2017-09-11] MEDS: VANCOMYCIN 500 MG VIAL (FOR ORAL USE ONLY) PO SCH (21:31)
[2017-09-11] MEDS: ZOLPIDEM TARTRATE 5 MG TAB PO PRN (21:32)
[2017-09-12] VITALS (7 sets, daily range): BP systolic 105–141; BP diastolic 57–78; PULSE 72–97; RESP 16–20; TEMP 97.8–99.9; O2SAT 91–95
[2017-09-12] MEDS ORDERED: LEVOFLOXACIN 750 MG PREMIX INJ 150 ML IV SCH (04:00)
[2017-09-12] MEDS: PANTOPRAZOLE SODIUM 40 MG VIAL IV PUSH SCH (04:08)
[2017-09-12] MEDS: LEVOTHYROXINE SODIUM 100 MCG TAB PO SCH (06:18)
[2017-09-12 06:29] LABS: HEMATOCRIT 32.6 % (39.0-51.0); HEMOGLOBIN 10.9 GM/DL (13.0-17.0); MEAN CELL VOLUME 82.7 FL (80.0-100.0); MEAN CORPUSCULAR HEMOGLOBIN 27.6 PG (27.0-34.0); MEAN CORPUSCULAR HGB CONC 33.4 % (32.0-36.0); PLATELET COUNT 358 TH/MM3 (150-450); RED BLOOD COUNT 3.94 MIL/MM3 (4.50-5.90); RED CELL DISTRIBUTION WIDTH 14.2 % (11.6-17.2); WHITE BLOOD COUNT 10.9 TH/MM3 (4.0-11.0)
[2017-09-12 06:53] LABS: BICARBONATE 23.5 MEQ/L (21.0-32.0); CALCIUM 7.9 MG/DL (8.5-10.1); CREATININE 1.01 MG/DL (0.60-1.30)
[2017-09-12] MEDS ORDERED: POTASSIUM CHLORIDE 20 MEQ CONTROLLED RELEASE TAB PO ONE (07:30)
--- NOTE | 2017-09-12 09:57 | HHI.FPPN ---
Subjective Remarks No acute events overnight. Patient resting comfortably in bed at bedside. Patient states that he was able to tolerate his diet yesterday w/o N/V. states that he has just been eating small bites of his food due to the side effect of the metallic taste in his mouth from the antibiotics. Informed patient that he can use grape juice to counteract the taste. Patient states that he also started having 5-6 bowel movements yesterday. He states that they were soft and watery. He denies any foul-smelling, bloody, mucousy, yellow diarrhea. C. difficile PCR negative. Will stop oral Vanco. Patient denies any fevers, chest pain, shortness of breath, abdominal pain. Wong catheter in place. (Ania Lawson MD R1) Objective Vitals Vital Signs Date Time Temp Pulse Resp B/P (MAP) Pulse Ox O2 Delivery O2 Flow Rate FiO2 09/12/17 08:47 95 21 09/12/17 08:00 98.0 79 17 141/74 (96) 93 09/12/17 05:25 98.2 97 18 134/78 (96) 93 09/12/17 01:54 98.5 80 16 105/57 (73) 91 09/11/17 21:49 99.5 88 16 146/76 (99) 92 09/11/17 16:00 98.6 86 16 127/66 (86) 92 09/11/17 12:00 98.7 78 16 143/67 (92) 92 I/O 09/11/17 09/11/17 09/11/17 09/12/17 09/12/17 09/12/17 07:00 15:00 23:00 07:00 15:00 23:00 Intake Total 1900 ml Output Total 1001 ml Balance 899 ml Intake Oral 600 ml IV Total 1300 ml Output Urine Total 1000 ml Stool Total 1 ml (Ania Lawson MD R1) Result Diagram: 09/12/17 0610 09/12/17 0610 Objective Remarks GENERAL: Pleasant, well-nourished, well-developed patient, in no apparent distress, resting comfortably in bed. CARDIOVASCULAR: Regular rate and rhythm without murmurs, gallops, or rubs. RESPIRATORY: Clear to auscultation. Breath sounds equal bilaterally. No wheezes , rales, or rhonchi. GASTROINTESTINAL: Abdomen soft, non-tender, nondistended. No hepato- splenomegaly, or palpable masses. No guarding. No CVA tenderness BL. MUSCULOSKELETAL: Extremities without clubbing, or cyanosis. No joint tenderness , effusion, or edema noted. No calf tenderness. +2 DP pulses BL. 1+ LE edema ( ankles and feet) BL. NEUROLOGICAL: AAOX3. (Ania Lawson MD R1) A/P Assessment and Plan Patient is a 87-year-old male with recent diagnosis of E. coli bacteremia and gangrenous cholecystitis (s/p laparoscopic cholecystectomy on 09/08) presenting with: Discharge Planning Transition to PO abx anticipate discharge in tomorrow Patient will follow up with general surgery and urology outpatient (Aina Lawson MD R1) Attending Attestation Patient seen and examined with Dr Tito Lawson EMR reviewed Agree with contents of above note Decision making discussed in detail with Dr Lawson See Orders (Eddie Aaron MD) Problem List: (1) S/P laparoscopic cholecystectomy ICD Codes: Z90.49 - Acquired absence of other specified parts of digestive tract Status: Acute Plan: Patient is s/p lap seht on 09/08 due to gangrenous cholecystitis ID consulted, appreciated recommendations Antibiotic history: Levaquin switch to PO 750mg daily, stop Levo 750 mg IV Q48h(due to renal function) (started 09/10-- Discontinue Flagyl 500mg IV Q8h (started 09/10-09/12) due to nausea and GI effects Repeat blood cultures 09/09/17- no growth in 2 days (2) Bacteremia due to Escherichia coli ICD Codes: R78.81 - Bacteremia Status: Acute Plan: Patient found to have E. coli bacteremia based on positive blood cx collected on 09/06 WBC wnl Repeat blood cx collected 09/09- no growth in 2 days C/w antibiotics mentioned in above plan per ID rec (3) Diarrhea ICD Codes: R19.7 - Diarrhea, unspecified Plan: patient having 5-6 episodes of watery diarrhea C.diff negative Patient given oral vanc yesterday, will stop since C.diff negative (4) Acute urinary retention ICD Codes: R33.8 - Other retention of urine Status: Acute Plan: Patient with 1 day h/o of urinary retention after being discharge from hospital 09/09 He was unable to void at home In the the ED wong cath was placed and output of 1.2L was achieved UA negative for infection Urology consulted, appreciated recommendations -c/w wong cath in place, continue for 1 week -Continue Flomax to 0.4mg PO BID, increased from home flomax dose -Patient will followup in the office this Monday for void trial -encourage ambulation and reduce narcotics as appropriate (5) BPH (benign prostatic hyperplasia) ICD Codes: N40.0 - Enlarged prostate without lower urinary tract symptoms Status: Chronic Plan: -Continue with flomax and proscar (6) Chronic renal insufficiency ICD Codes: N18.9 - Chronic kidney disease, unspecified Status: Chronic Plan: Baseline creatinine of 1.4, creatinine improved Avoid nephrotoxic agents (7) Hypothyroid ICD Codes: E03.9 - Hypothyroidism Status: Chronic Plan: Continue home levothyroxine (8) Hypokalemia ICD Codes: E87.6 - Hypokalemia Plan: K+ 3.2, replace orally continue to monitor (9) Nutrition, metabolism, and development symptoms ICD Codes: R63.8 - Other symptoms and signs concerning food and fluid intake Plan: Fluids: PO hydration Electrolytes: replete as needed, continue to monitor Nutrition: regular diet DVT ppx: SCDs, heparin GI ppx: protonix 40mg PO daily (Ania Lawson MD R1) Ania Lawson MD R1 Sep 12, 2017 09:57 Eddie Aaron MD Sep 13, 2017 07:24
[2017-09-12] MEDS: TAMSULOSIN HCL 0.4 MG CAP PO SCH ×2 (10:15→21:06)
[2017-09-12] MEDS: FENOFIBRATE 145 MG TAB PO SCH (10:16)
[2017-09-12] MEDS: VANCOMYCIN 500 MG VIAL (FOR ORAL USE ONLY) PO SCH (10:16)
[2017-09-12] MEDS: SODIUM CHLORIDE 0.9% FLUSH 10 ML FLUSH IV FLUSH SCH ×2 (10:16→21:08)
[2017-09-12] MEDS: DOCUSATE SODIUM 50 MG/SENNA 8.6 MG TAB PO SCH ×2 (10:17→21:00)
[2017-09-12] MEDS: FINASTERIDE 5 MG TAB PO SCH (10:17)
[2017-09-12] MEDS: HEPARIN SODIUM - SQ 10,000 UNITS/ML VIAL SQ SCH (15:49)
--- NOTE | 2017-09-12 18:32 | HHI.IDPN ---
Note Infectious Disease Note Patient feels okay. Eating. Stools forming. No fever or chills. No longer having nausea. No abdominal pain. Ambulating. He underwent laparoscopic cholecystectomy. Was found to have gangrenous cholecystitis. Patient was discharged home and developed nausea and vomiting and difficulty passing urine. He was catheterized and 1.2 L of urine returned. He has a Wong catheter in place. He was noted to have 700 cc urine earlier today. Repeat blood culture has no growth in 3 days. Previously admitted on 09/05/2017 with nausea, vomiting, diarrhea and right upper quadrant abdominal pain. The patient had been sick for about a week and he had very marked decrease in appetite. He had positive blood cultures for E. coli. He underwent cholecystectomy and subsequently was discharged on 09/09 on p.o. antibiotics. He was readmitted The same day because of the nausea and vomiting and urinary retention. PAST MEDICAL HISTORY: Benign prostatic hypertrophy, hypothyroidism, hyperlipidemia, hypertriglyceridemia, chronic kidney disease, osteoarthritis, bilateral total knee replacement, and cataract surgery, bilateral. ALLERGIES: NO KNOWN DRUG ALLERGIES. Current Medications Medications (Trade) Dose Ordered Sig/Mark Route PRN Reason Start Time Stop Time Status Last Admin Dose Admin Sodium Chloride (NS Flush) 2 ml UNSCH PRN IV FLUSH FLUSH AFTER USING IV ACCESS 09/10/17 01:30 Sodium Chloride (NS Flush) 2 ml BID IV FLUSH 09/10/17 09:00 09/12/17 10:16 Acetaminophen (Tylenol) 650 mg Q4H PRN PO PAIN 1-10 AND/OR FEVER >101F 09/10/17 01:30 Naloxone HCl (Narcan Inj) 0.4 mg UNSCH PRN IV PUSH SEE LABEL COMMENTS 09/10/17 01:30 Senna/Docusate Sodium (Rosaura-Colace) 1 tab BID PO 09/10/17 09:00 09/12/17 10:17 Magnesium Hydroxide (Milk Of Magnesia Liq) 30 ml Q12H PRN PO Mild constipation 09/10/17 01:30 Sennosides (Senokot) 17.2 mg Q12H PRN PO Moderate constipation 09/10/17 01:30 Bisacodyl (Dulcolax Supp) 10 mg DAILY PRN RECTAL SEVERE CONSITIPATION 09/10/17 01:30 Ondansetron HCl (Zofran Odt) 4 mg Q6H PRN PO N/V 09/10/17 01:30 Finasteride (Proscar) 5 mg DAILY PO 09/10/17 09:00 09/12/17 10:17 Levothyroxine Sodium (Synthroid) 100 mcg DAILY@0600 PO 09/10/17 06:00 09/12/17 06:18 Fenofibrate (Tricor) 145 mg DAILY PO 09/10/17 09:00 09/12/17 10:16 Tamsulosin HCl (Flomax) 0.4 mg Q12HR PO 09/10/17 21:00 09/12/17 10:15 Zolpidem Tartrate (Ambien) 5 mg HS PRN PO INSOMNIA 09/11/17 21:00 09/11/17 21:32 Levofloxacin (Levaquin) 750 mg DAILY PO 09/13/17 09:00 Pantoprazole Sodium (Protonix) 40 mg DAILY PO 09/13/17 09:00 Lactobacillus Acidophilus (Lactinex) 1 tab Q12HR PO 09/12/17 21:00 Heparin Sodium (Porcine) (Heparin Inj) 5,000 units Q12H SQ 09/12/17 15:00 09/12/17 15:49 SOCIAL HISTORY: The patient is . No tobacco, no alcohol, no illicit drugs. FAMILY HISTORY: Noncontributory. Objective: Vital Signs Date Time Temp Pulse Resp B/P (MAP) Pulse Ox O2 Delivery O2 Flow Rate FiO2 09/12/17 12:00 97.9 87 17 119/58 (78) 95 09/12/17 08:47 95 21 09/12/17 08:00 98.0 79 17 141/74 (96) 93 09/12/17 05:25 98.2 97 18 134/78 (96) 93 09/12/17 01:54 98.5 80 16 105/57 (73) 91 09/11/17 21:49 99.5 88 16 146/76 (99) 92 Laboratory Tests Test 09/11/17 06:58 09/12/17 06:10 White Blood Count 9.8 TH/MM3 10.9 TH/MM3 Red Blood Count 3.64 MIL/MM3 3.94 MIL/MM3 Hemoglobin 10.3 GM/DL 10.9 GM/DL Hematocrit 30.6 % 32.6 % Mean Corpuscular Volume 84.1 FL 82.7 FL Mean Corpuscular Hemoglobin 28.3 PG 27.6 PG Mean Corpuscular Hemoglobin Concent 33.7 % 33.4 % Red Cell Distribution Width 14.7 % 14.2 % Platelet Count 310 TH/MM3 358 TH/MM3 Mean Platelet Volume 9.6 FL 9.0 FL Laboratory Tests Test 09/11/17 06:58 09/12/17 06:10 Blood Urea Nitrogen 12 MG/DL 9 MG/DL Creatinine 0.95 MG/DL 1.01 MG/DL Random Glucose 90 MG/DL 102 MG/DL Calcium Level 7.6 MG/DL 7.9 MG/DL Sodium Level 139 MEQ/L 141 MEQ/L Potassium Level 3.1 MEQ/L 3.2 MEQ/L Chloride Level 105 MEQ/L 108 MEQ/L Carbon Dioxide Level 22.1 MEQ/L 23.5 MEQ/L Anion Gap 12 MEQ/L 10 MEQ/L Estimat Glomerular Filtration Rate 75 ML/MIN 70 ML/MIN PHYSICAL EXAMINATION: GENERAL: No acute distress. Awake and alert and oriented. HEENT: Extraocular movements are grossly intact. Pupils reactive to light. No icterus. Oropharynx has moist mucosa. No lesions. NECK: Supple, no adenopathy. LUNGS: Clear to auscultation. HEART: Regular S1 and S2. No murmurs, rubs or gallops. ABDOMEN: Soft, no tenderness. EXTREMITIES: No clubbing, cyanosis or edema. SKIN: No rash. Warm and dry. NEUROLOGIC: No gross focal finding. PSYCHIATRIC: Calm and cooperative. Wong catheter has clear urine. IMPRESSION: 1. Escherichia coli sepsis secondary to gallbladder disease. Stable. 2. Acute gangrenous cholecystitis. Postop laparoscopic cholecystectomy. 3. Urinary retention. Has wong catheter in place. 4. Diarrhea. Negative C. dificile. RECOMMENDATIONS: 1. Give Levaquin 500mg daily x 7 days more. 2. Give lactinex while on Levaquin. Okay for discharge from ID standpoint. Von Grimm MD Sep 12, 2017 18:32
[2017-09-12] MEDS: LACTOBACILLUS ACIDOPHILUS TAB PO SCH (21:06)
[2017-09-12] MEDS: ZOLPIDEM TARTRATE 5 MG TAB PO PRN (21:06)
[2017-09-13] VITALS: BP 138/73; PULSE 87; RESP 20; TEMP 98.1; O2SAT 94
[2017-09-13] MEDS: HEPARIN SODIUM - SQ 10,000 UNITS/ML VIAL SQ SCH (03:00)
[2017-09-13 04:00] VITALS: BP 124/65; PULSE 81; RESP 20; TEMP 99.3; O2SAT 94
[2017-09-13 08:00] VITALS: BP 139/79; PULSE 86; RESP 16; TEMP 98.5; O2SAT 95
[2017-09-13] MEDS: DOCUSATE SODIUM 50 MG/SENNA 8.6 MG TAB PO SCH (08:30)
[2017-09-13] MEDS: FINASTERIDE 5 MG TAB PO SCH (08:33)
[2017-09-13] MEDS: FENOFIBRATE 145 MG TAB PO SCH (08:33)
[2017-09-13] MEDS: TAMSULOSIN HCL 0.4 MG CAP PO SCH (08:33)
[2017-09-13] MEDS: LEVOTHYROXINE SODIUM 100 MCG TAB PO SCH (08:33)
[2017-09-13] MEDS: LACTOBACILLUS ACIDOPHILUS TAB PO SCH (08:33)
[2017-09-13] MEDS: SODIUM CHLORIDE 0.9% FLUSH 10 ML FLUSH IV FLUSH SCH (08:34)
[2017-09-13] MEDS ORDERED: LEVOFLOXACIN 750 MG TAB PO SCH (09:00)
[2017-09-13] MEDS ORDERED: PANTOPRAZOLE SOD 40 MG DELAYED RELEASE TAB PO SCH (09:00)
[2017-09-13] MEDS ORDERED: LEVA750T9 PO (09:24)
[2017-09-13] MEDS ORDERED: TAMS5CAP PO (09:24)
[2017-09-13] MEDS ORDERED: LACT PO (09:24)
--- NOTE | 2017-09-13 09:25 | HHI.DCPOC ---
Discharge Care Plan Diagnosis: (1) Bacteremia due to Escherichia coli (2) Sepsis (3) Acute urinary retention (4) S/P laparoscopic cholecystectomy (5) Cholecystitis Goals to Promote Your Health * To prevent worsening of your condition and complications * To maintain your health at the optimal level Directions to Meet Your Goals Take your medications as prescribed Follow your dietary instruction Follow activity as directed Keep your appointments as scheduled Take your immunizations and boosters as scheduled If your symptoms worsen call your PCP, if no PCP go to Urgent Care Center or Emergency Room Smoking is Dangerous to Your Health. Avoid second hand smoke Call the 24-hour hour crisis hotline for domestic abuse at Ania Lawson MD R1 Sep 13, 2017 09:25
--- NOTE | 2017-09-13 09:26 | HHI.DS ---
Discharge Summary Admission Date Sep 10, 2017 at 01:07 Admitting Diagnosis acute urinary retention (1) S/P laparoscopic cholecystectomy Plan: Patient is s/p lap seth on 09/08 due to gangrenous cholecystitis ID consulted, appreciated recommendations Antibiotic history: Levaquin switch to PO 750mg daily, stop Levo 750 mg IV Q48h(due to renal function) (started 09/10-- Discontinue Flagyl 500mg IV Q8h (started 09/10-09/12) due to nausea and GI effects Repeat blood cultures 09/09/17- no growth in 2 days ICD Codes: Z90.49 - Acquired absence of other specified parts of digestive tract Status: Acute (2) Bacteremia due to Escherichia coli Plan: Patient found to have E. coli bacteremia based on positive blood cx collected on 09/06 WBC wnl Repeat blood cx collected 09/09- no growth in 2 days C/w antibiotics mentioned in above plan per ID rec ICD Codes: R78.81 - Bacteremia Status: Acute (3) Diarrhea Plan: patient having 5-6 episodes of watery diarrhea C.diff negative Patient given oral vanc yesterday, will stop since C.diff negative ICD Codes: R19.7 - Diarrhea, unspecified (4) Acute urinary retention Plan: Patient with 1 day h/o of urinary retention after being discharge from hospital 09/09 He was unable to void at home In the the ED wong cath was placed and output of 1.2L was achieved UA negative for infection Urology consulted, appreciated recommendations -c/w wong cath in place, continue for 1 week -Continue Flomax to 0.4mg PO BID, increased from home flomax dose -Patient will followup in the office this Monday for void trial -encourage ambulation and reduce narcotics as appropriate ICD Codes: R33.8 - Other retention of urine Status: Acute (5) BPH (benign prostatic hyperplasia) Plan: -Continue with flomax and proscar ICD Codes: N40.0 - Enlarged prostate without lower urinary tract symptoms Status: Chronic (6) Chronic renal insufficiency Plan: Baseline creatinine of 1.4, creatinine improved Avoid nephrotoxic agents ICD Codes: N18.9 - Chronic kidney disease, unspecified Status: Chronic (7) Hypothyroid Plan: Continue home levothyroxine ICD Codes: E03.9 - Hypothyroidism Status: Chronic (8) Hypokalemia Plan: K+ 3.2, replace orally continue to monitor ICD Codes: E87.6 - Hypokalemia (9) Nutrition, metabolism, and development symptoms Plan: Fluids: PO hydration Electrolytes: replete as needed, continue to monitor Nutrition: regular diet DVT ppx: SCDs, heparin GI ppx: protonix 40mg PO daily ICD Codes: R63.8 - Other symptoms and signs concerning food and fluid intake Brief History Patient is a 87-year-old male with recent diagnosis of E. coli bacteremia and gangrenous cholecystitis (s/p laparoscopic cholecystectomy on 09/08) who was brought to the emergency room by family due to inability to urinate at home and multiple episodes of vomiting (NBNB). PMH significant for CKD, hypothyroidism, hyperlipidemia, osteoarthritis and BPH. Family at bedside provided history. Patient was discharged from hospital on 09/09. He reports he felt well prior to discharge. However on the way home from the hospital he had one episode of vomiting in the car. He vomited 3 more times at home and was not able to tolerate p.o. intake. In addition, he had complained to family of feeling lower abdominal pain ("suprapubic pain") and had been unable to urinate at home. Denies any fever, chills, confusion, SOB, CP, abdominal pain or diarrhea. Endorses wet cough and abdominal distention that started today, per . Patient did not take any narcotic pain medication after he was discharged. Denies any previous episodes of urinary retention in the past. The ED after placement of urinary cath pt putout 1.2L of urine with resolution of subrapubic abdominal pain. UA was found to be negative for infection. Of note patient was admitted on 09/06 for complaints of right upper quadrant abdominal pain and blood tinged emesis. During the hospitalization patient had EGD procedure done which showed hiatal hernia, gastritis of antrum and esophagitis of the distal esophagus. Biopsies from EGD are still pending. Patient was also diagnosed with gangrenous cholecystitis and underwent laparoscopic cholecystectomy on 09/08. Patient was to follow-up with GI and surgery as an outpatient. CBC/BMP: 09/12/17 0610 09/12/17 0610 Significant Findings Laboratory Tests Test 09/11/17 06:58 09/12/17 05:30 09/12/17 06:10 Red Blood Count 3.64 MIL/MM3 (4.50-5.90) 3.94 MIL/MM3 (4.50-5.90) Hemoglobin 10.3 GM/DL (13.0-17.0) 10.9 GM/DL (13.0-17.0) Hematocrit 30.6 % (39.0-51.0) 32.6 % (39.0-51.0) Calcium Level 7.6 MG/DL (8.5-10.1) 7.9 MG/DL (8.5-10.1) Potassium Level 3.1 MEQ/L (3.5-5.1) 3.2 MEQ/L (3.5-5.1) Estimat Glomerular Filtration Rate 75 ML/MIN (>89) 70 ML/MIN (>89) Chloride Level 108 MEQ/L (98-107) PE at Discharge GENERAL: Pleasant, well-nourished, well-developed patient, in no apparent distress, resting comfortably in bed. CARDIOVASCULAR: Regular rate and rhythm without murmurs, gallops, or rubs. RESPIRATORY: Clear to auscultation. Breath sounds equal bilaterally. No wheezes , rales, or rhonchi. GASTROINTESTINAL: Abdomen soft, non-tender, nondistended. No hepato- splenomegaly, or palpable masses. No guarding. No CVA tenderness BL. MUSCULOSKELETAL: Extremities without clubbing, or cyanosis. No joint tenderness , effusion, or edema noted. No calf tenderness. +2 DP pulses BL. 1+ LE edema ( ankles and feet) BL. NEUROLOGICAL: AAOX3. Ania Lawson MD R1 Sep 13, 2017 09:26
--- NOTE | 2017-09-13 09:47 | HHI.FPPN ---
Subjective Remarks No acute events overnight. Patient resting comfortably in bed at bedside Patient states that he is tolerating his diet well without nausea or vomiting. Patient currently does not have any chest pain, shortness of breath, abdominal pain, nausea vomiting. Patient states that his stools are soft, discussed with patient about taking OTC fiber at home (Ania Lawson MD R1) Objective Vitals Vital Signs Date Time Temp Pulse Resp B/P (MAP) Pulse Ox O2 Delivery O2 Flow Rate FiO2 09/13/17 04:00 99.3 81 20 124/65 (84) 94 09/13/17 00:00 98.1 87 20 138/73 (94) 94 09/12/17 20:00 99.9 92 20 132/65 (87) 92 09/12/17 12:00 97.9 87 17 119/58 (78) 95 I/O 09/12/17 09/12/17 09/12/17 09/13/17 09/13/17 09/13/17 07:00 15:00 23:00 07:00 15:00 23:00 Intake Total 240 ml Output Total 450 ml 1350 ml Balance -450 ml -1110 ml Intake Oral 240 ml Output Urine Total 450 ml 1350 ml # Bowel Movements 1 (Ania Lawson MD R1) Result Diagram: 09/12/17 0610 09/12/17 0610 Objective Remarks GENERAL: Pleasant, well-nourished, well-developed patient, in no apparent distress, resting comfortably in bed. CARDIOVASCULAR: Regular rate and rhythm without murmurs, gallops, or rubs. RESPIRATORY: Clear to auscultation. Breath sounds equal bilaterally. No wheezes , rales, or rhonchi. GASTROINTESTINAL: Abdomen soft, non-tender, nondistended. No hepato- splenomegaly, or palpable masses. No guarding. No CVA tenderness BL. MUSCULOSKELETAL: Extremities without clubbing, or cyanosis. No joint tenderness , effusion, or edema noted. No calf tenderness. +2 DP pulses BL. 1+ LE edema ( ankles and feet) BL. NEUROLOGICAL: AAOX3. (Ania Lawson MD R1) A/P Assessment and Plan Patient is a 87-year-old male with recent diagnosis of E. coli bacteremia and gangrenous cholecystitis (s/p laparoscopic cholecystectomy on 09/08) presenting with: Discharge Planning anticipate discharge today with [facility] Patient will follow up with general surgery and urology outpatient (Ania Lawson MD R1) Attending Attestation See the residents Dr Rollins documentation for details. I saw and evaluated the patient regarding the jimenes portions of this evaluation and agree with the residents findings and plans as written. (Eddie Aaron MD) Problem List: (1) S/P laparoscopic cholecystectomy ICD Codes: Z90.49 - Acquired absence of other specified parts of digestive tract Status: Acute Plan: Patient is s/p lap seth on 09/08 due to gangrenous cholecystitis ID consulted, appreciated recommendations Antibiotic history: Levaquin switch to PO 750mg daily, stop Levo 750 mg IV Q48h(due to renal function) (09/10--) patient will continue for x6 days per ID, will send patient home on prescription of PO Levaquin Discontinued Flagyl 500mg IV Q8h (09/10-09/12) due to nausea and GI effects Repeat blood cultures 09/09/17- NGTD ID signing off Patient will follow up with general surgery tomorrow (2) Bacteremia due to Escherichia coli ICD Codes: R78.81 - Bacteremia Status: Acute Plan: Patient found to have E. coli bacteremia based on positive blood cx collected on 09/06 WBC wnl Repeat blood cx collected 09/09- NGTD C/w antibiotic mentioned in above plan per ID rec (3) Diarrhea ICD Codes: R19.7 - Diarrhea, unspecified Plan: patient having 5-6 episodes of watery diarrhea C.diff negative Patient given oral vanc yesterday, will stop since C.diff negative Encourage patient to try [id number] fiber for diarrhea (4) Acute urinary retention ICD Codes: R33.8 - Other retention of urine Status: Acute Plan: Patient with 1 day h/o of urinary retention after being discharge from hospital 09/09 He was unable to void at home In the the ED wong cath was placed and output of 1.2L was achieved UA negative for infection Urology consulted, appreciated recommendations -c/w wong cath in place, continue for 1 week -Continue Flomax to 0.4mg PO BID, increased from home flomax dose -Patient will followup in the office this Monday for void trial -encourage ambulation and reduce narcotics as appropriate (5) BPH (benign prostatic hyperplasia) ICD Codes: N40.0 - Enlarged prostate without lower urinary tract symptoms Status: Chronic Plan: -Continue with flomax and proscar (6) Chronic renal insufficiency ICD Codes: N18.9 - Chronic kidney disease, unspecified Status: Chronic Plan: Baseline creatinine of 1.4, creatinine improved Avoid nephrotoxic agents (7) Hypothyroid ICD Codes: E03.9 - Hypothyroidism Status: Chronic Plan: Continue home levothyroxine (8) Hypokalemia ICD Codes: E87.6 - Hypokalemia Plan: replace orally continue to monitor (9) Nutrition, metabolism, and development symptoms ICD Codes: R63.8 - Other symptoms and signs concerning food and fluid intake Plan: Fluids: PO hydration Electrolytes: replete as needed, continue to monitor Nutrition: regular diet DVT ppx: SCDs, heparin GI ppx: protonix 40mg PO daily (Ania Lawson MD R1) Ania Lawson MD R1 Sep 13, 2017 09:47 Eddie Aaron MD Sep 14, 2017 07:21
--- NOTE | 2017-09-13 09:58 | HHI.FF ---
Face to Face Verification Diagnosis: (1) Cholecystitis (2) S/P laparoscopic cholecystectomy (3) Acute urinary retention Physical Therapy Order: Evaluate and Treat, Improve ambulation, Strength and gait training Home Health Nursing Order: Medical education Signs/symptoms of disease process Medication education-adverse effect Gipson catheter maintenance I have seen patient Braxton Escobar on 09/13/17. My clinical findings support the need for the requested home health care services because: Ltd mobility - disease progression Deconditioned w/ increased weakness I certify that my clinical findings support that this patient is homebound because: Post-op weakness Unsteady gait/balance Ania Lawson MD R1 Sep 13, 2017 09:58
[2017-09-13 11:11] LABS: HEMATOCRIT 33.6 % (39.0-51.0); MEAN CELL VOLUME 82.8 FL (80.0-100.0); MEAN CORPUSCULAR HEMOGLOBIN 27.2 PG (27.0-34.0); MEAN CORPUSCULAR HGB CONC 32.8 % (32.0-36.0); MEAN PLATELET VOLUME 9.7 FL (7.0-11.0); PLATELET COUNT 371 TH/MM3 (150-450); RED BLOOD COUNT 4.06 MIL/MM3 (4.50-5.90); RED CELL DISTRIBUTION WIDTH 14.6 % (11.6-17.2); WHITE BLOOD COUNT 11.3 TH/MM3 (4.0-11.0)
[2017-09-13 11:21] LABS: BICARBONATE 24.4 MEQ/L (21.0-32.0); CALCIUM 8.1 MG/DL (8.5-10.1); CREATININE 0.95 MG/DL (0.60-1.30)
== END 2017-09-13 10:54 | disposition home or self-care (01) | DRG 726 ==
LOC: NEPE 22:30 → NEDA 09-10 01:07 → NEPHCDU 09-10 04:03 → N05B 09-12 15:12
PROVIDERS: ADMIT Family Medicine; ATTEND Family Medicine
PROC: 0T9B70Z Drainage of Bladder with Drainage Device, Via Natural or Artificial Opening (ICD-10-PCS; principal; 2017-09-10)
DX: N40.1 Benign prostatic hyperplasia with lower urinary tract symptoms (principal); R78.81 Bacteremia; R33.8 Other retention of urine; K20.9 Esophagitis, unspecified; E03.9 Hypothyroidism, unspecified; N18.9 Chronic kidney disease, unspecified; E78.5 Hyperlipidemia, unspecified; K44.9 Diaphragmatic hernia without obstruction or gangrene; K29.70 Gastritis, unspecified, without bleeding; E78.1 Pure hyperglyceridemia; R19.7 Diarrhea, unspecified; E87.6 Hypokalemia; B96.20 Unspecified Escherichia coli [E. coli] as the cause of diseases classified elsewhere; Z80.42 Family history of malignant neoplasm of prostate; Z90.49 Acquired absence of other specified parts of digestive tract; Z96.653 Presence of artificial knee joint, bilateral
CPT/HCPCS: 51702; 80048; 80053; 81001; 85025; 85027; 87493; 94150; C9113; J1644; J1956; J7030